=== PATIENT | female | born 1955 | race Caucasian/White ===

== ENCOUNTER 2017-01-16 17:06 | Inpatient (IN) ==
[2017-01-16] MEDS ORDERED: 0.9 % Sodium Chloride 1,000 ML IVC ONE (17:12)
--- NOTE | 2017-01-16 17:19 | Emergency Department Note ---
Disposition Clinical Impression: Alcoholic cirrhosis of liver, Hyperbilirubinemia, Pancreatic mass, Alcoholism / alcohol abuse, CVA (cerebral vascular accident), Debilitated patient Disposition: Admitted As Inpatient Condition: Serious Referrals: NO,PCP [Primary Care Provider] - Forms: ED Satisfaction Letter Weakness HPI - General Chief complaint: ED Weakness Stated complaint: Unable to Walk Source: patient, family, EMS Limitations: no limitations Nursing Notes Reviewed: Yes Vital Signs Reviewed: Yes - History of Present Illness HPI Narrative: 61-year-old female with a history of alcoholic cirrhosis, chronic pancreatitis and previous CVA presents to the emergency department with the chief complaint of generalized weakness. She has had multiple CVAs in the past but has refused to come to the hospital. She has been evaluated one time for her strokes at [facility]. She is an alcoholic and drinks three 1/2 gallons of vodka every week. Her boyfriend whom she lives with states she has become so weak especially on the left side she has not even been able to stand, this has been going on for about the last 3 weeks. Patient denies any abdominal pain, nausea or vomiting. Denies any diarrhea. Denies any headache. She does admit to some weakness worse in the left. Pain Scale: 0 - Related Data Allergies Allergy/AdvReac Type Severity Reaction Status Date / Time No Known Allergies Allergy Verified 01/16/17 17:07 All systems ED: reviewed and negative except as stated. Constitutional: Denies: fever Cardiovascular: Denies: chest pain Respiratory: Denies: cough Gastrointestinal: Denies: abdominal pain, nausea, vomiting, diarrhea Musculoskeletal: Denies: back pain, neck pain Neurological: Reports: weakness. Denies: headache Past Medical History - Past Medical History Medical history: Reports: coronary artery disease, CVA, hyperlipidemia, liver disease, TIA Psychiatric history: Reports: no psych history - Social History Smoking Status: Current every day smoker Smokeless Tobacco Status: No Alcohol use: Reports: heavy Drug use: Reports: none Physical Exam General: Patient is cachectic and appears very chronically ill, she is obviously jaundiced but awake and alert Cardiovascular: Regular rate and rhythm. S1, S2. No murmurs, rubs or gallops. Respiratory: Breath sounds clear bilaterally. No wheezing, rales or rhonchi. No resp distress Abdomen: Soft, nontender. No guarding, rebound or rigidity. Normal bowel sounds throughout. Negative Graham's. No palpable organomegaly Eyes: Scleral icterus, pupils equally round and reactive, EOMI HENT: Dry mucous membranes. Poor dentition. Neuro: No facial droop. Cranial nerves intact. Chronic contractures of the left upper extremity. Neither leg drifts to the bed for 10 seconds. 5/5 right upper extremity strength. Musculoskeletal: Diffuse muscle atrophy in the upper and lower extremities. No joint swelling or tenderness Skin: Jaundiced and dry. No diaphoresis. Psych: Appropriate - General Limitations: no limitations General appearance: alert, in no apparent distress Course Course Narrative: Presents to the emergency department with progressive weakness leading to her inability to even stand or take care of herself at home. She has refused to see a doctor or be worked up for her medical problems. Her boyfriend has been taking care of her completely for the last 3 weeks as she is not even able to stand. Known history of multiple strokes in the past but essentially no workup. She is an alcoholic and drinks about 1.5 gallons of vodka per week. She is cachectic, jaundiced and chronically ill-appearing. Her EKG shows no acute ischemic changes. Chest x-ray clear. Labs reveal hyperbilirubinemia and transaminitis likely relating to her chronic alcohol use. CT scan of her head shows multiple areas of previous infarctions with the majority in the right parietal temporal region.The CT scan of her abdomen shows chronic pancreatitis with a lesion in the tail of the pancreas that might need further imaging for better demonstration. She has a very enlarged liver with severe fatty infiltration. At this point patient's outcome is grim. She severely debilitated and may require full care at this point. She agrees to stay in the hospital. She will need alcoholic withdrawal protocol as she is a very heavy drinker. Dr. Ríos spoke with the on-call hospitalist, Dr. Lyn who accepts for admission, we added on a magnesium and phosphorus per his request. Vital Signs Temperature 98 F 01/16/17 17:08 Pulse Rate 84 01/16/17 17:08 Respiratory Rate 18 01/16/17 17:08 Blood Pressure 156/85 01/16/17 17:08 O2 Sat by Pulse Oximetry 100 01/16/17 17:08 Temperature 98 F 01/16/17 17:08 Pulse Rate 81 01/16/17 18:37 Respiratory Rate 17 01/16/17 18:37 Blood Pressure 164/85 01/16/17 18:37 O2 Sat by Pulse Oximetry 100 01/16/17 18:37 Oxygen Delivery Oxygen Delivery Room Air Weakness - Lab Data Result diagrams: 01/16/17 18:34 01/16/17 18:34 Lab Results 01/16/17 01/16/17 01/16/17 Range/Units 18:34 18:34 18:34 WBC 10.0 (4.3-11.1) K/mcL RBC 3.62 L (3.82-4.97) M/mcL Hgb 12.6 (11.5-15.4) g/dL Hct 35.1 L (35.3-44.9) % MCV 97.0 (83.0-100.0) fL MCH 34.8 H (28.0-33.3) pg MCHC 35.9 H (31.6-35.5) g/dL RDW 17.2 H (11.5-14.5) % Plt Count 262 (140-400) K/mcL MPV 10.9 (9.4-12.4) fL Immature Gran % 0.6 (0-4) % Seg Neutrophils % 79.1 % Lymphocytes % 14.1 % Monocytes % 5.7 % Eosinophils % 0.1 % Basophils % 0.4 % Neutrophils # 7.9 (1.6-8.9) K/mcL Lymphocytes # 1.4 (0.6-4.6) K/mcL Monocytes # 0.6 (0.0-1.3) K/mcL Eosinophils # 0.0 (0.0-0.6) K/mcL Basophils # 0.0 (0.0-0.2) K/mcL Immature Plt Fraction 6.9 H (1.1-6.1) % PT 17.0 H (9.4-12.1) Seconds INR 1.6 Sodium 131 L (136-145) mEq/L Potassium 3.2 L (3.5-4.5) mEq/L Chloride 100 (98-109) mEq/L Carbon Dioxide 21 (19-29) mEq/L BUN 5 L (7-20) mg/dL Creatinine 0.53 L (0.57-1.11) mg/dL Est GFR ( Amer) > 60 (> 60) Est GFR (Non-Af Amer) > 60 (> 60) BUN/Creatinine Ratio 9 (6-26) Glucose 130 H (70-99) mg/dL Calculated Osmolality 271 L (280-300) Calcium 7.8 L (8.6-10.8) mg/dL Total Bilirubin 10.6 H (0.2-1.2) mg/dL Direct Bilirubin 8.1 H (0.0-0.5) mg/dL Indirect Bilirubin 2.5 H (0.0-1.2) mg/dL AST 180 H (5-34) Units/L ALT 100 H (0-55) Units/L Alkaline Phosphatase 211 H (38-126) Units/L Troponin I (0-0.03) ng/mL Serum Total Protein 5.7 L (6.0-8.3) g/dL Albumin 2.0 L (3.5-5.0) g/dL Globulin 3.7 H (2.4-3.5) g/dL Albumin/Globulin Ratio 0.5 L (1.1-2.2) Lipase 20 (8-78) Units/L /25/17 Range/Units 18:34 WBC (4.3-11.1) K/mcL RBC (3.82-4.97) M/mcL Hgb (11.5-15.4) g/dL Hct (35.3-44.9) % MCV (83.0-100.0) fL MCH (28.0-33.3) pg MCHC (31.6-35.5) g/dL RDW (11.5-14.5) % Plt Count (140-400) K/mcL MPV (9.4-12.4) fL Immature Gran % (0-4) % Seg Neutrophils % % Lymphocytes % % Monocytes % % Eosinophils % % Basophils % % Neutrophils # (1.6-8.9) K/mcL Lymphocytes # (0.6-4.6) K/mcL Monocytes # (0.0-1.3) K/mcL Eosinophils # (0.0-0.6) K/mcL Basophils # (0.0-0.2) K/mcL Immature Plt Fraction (1.1-6.1) % PT (9.4-12.1) Seconds INR Sodium (136-145) mEq/L Potassium (3.5-4.5) mEq/L Chloride (98-109) mEq/L Carbon Dioxide (19-29) mEq/L BUN (7-20) mg/dL Creatinine (0.57-1.11) mg/dL Est GFR ( Amer) (> 60) Est GFR (Non-Af Amer) (> 60) BUN/Creatinine Ratio (6-26) Glucose (70-99) mg/dL Calculated Osmolality (280-300) Calcium (8.6-10.8) mg/dL Total Bilirubin (0.2-1.2) mg/dL Direct Bilirubin (0.0-0.5) mg/dL Indirect Bilirubin (0.0-1.2) mg/dL AST (5-34) Units/L ALT (0-55) Units/L Alkaline Phosphatase (38-126) Units/L Troponin I 0.01 (0-0.03) ng/mL Serum Total Protein (6.0-8.3) g/dL Albumin (3.5-5.0) g/dL Globulin (2.4-3.5) g/dL Albumin/Globulin Ratio (1.1-2.2) Lipase (8-78) Units/L - EKG Data EKG results narrative: EKG shows a sinus rhythm with a rate of [address] elevation or depression. T-wave flattening in V4 through V6. CA, QRS, QT interval within normal limits. Normal axis. Attestation Statement - Attestation Attestation: Patient was seen with resident physician. I reviewed the history, physical, assessment and plan, and agree with the findings. I also personally evaluated this patient and had [id number] time with this patient. 61-year-old female with a variety of medical problems presents emergency department with increased weakness for the last several weeks. She is unable to take care of herself at home. She says the weakness is largely on the left side which she has had multiple strokes in the past. It was not a particularly acute onset. Her caregiver says he can no longer care for her because he is unable to carry her around as is required because she is unable to walk. Patient's severe alcoholic , she has been noncompliant with her physicians in medical therapies, but at this point is amenable to admission to the hospital because she is really unable to care for herself. On examination patient is jaundiced. Neurologically she is intact strength seems symmetric in both the left and right upper extremities. Heart and lungs are unremarkable. Abdomen is soft cannot elicit tenderness. Extremities show no swelling. We will do a workup to check for liver pancreatic and neurologic issues. Once we have some more clinical data will anticipate needing to admit this patient to the hospital for further evaluation and treatment as well as physical therapy and occupational therapy to try and help her regain her strength. Lab testing was consistent with liver failure, head CT scan shows no acute changes, abdominal CT scan showed a variety of abnormalities including enlarged liver and calcifications are on the pancreas. Suggested follow-up of an MRI to look I agree with for additional abnormality's. Patient was hemodynamically okay but still unable to care for herself on the emergency department. I personally spoke with the hospitalist to arrange for admission for this patient. I agree with the resident physician assessment and plan.
[2017-01-16 18:43] LABS: Basophils % 0.4 %; Eosinophils % 0.1 %; Hematocrit 35.1 % (35.3-44.9); Hemoglobin 12.6 g/dL (11.5-15.4); Immature Granulocytes % 0.6 % (0-4); Immature Platelets 6.9 % (1.1-6.1); Lymphocytes # 1.4 K/mcL (0.6-4.6); Lymphocytes % 14.1 %; Mean Corpuscular HGB Conc 35.9 g/dL (31.6-35.5); Mean Corpuscular Hemoglobin 34.8 pg (28.0-33.3); Mean Platelet Volume 10.9 fL (9.4-12.4); Monocytes # 0.6 K/mcL (0.0-1.3); Monocytes % 5.7 %; Neutrophils # 7.9 K/mcL (1.6-8.9); Platelet Count 262 K/mcL (140-400); Red Blood Count 3.62 M/mcL (3.82-4.97); Red Cell Distribution Width 17.2 % (11.5-14.5); Segmented Neutrophils % 79.1 %
[2017-01-16 18:49] LABS: INR 1.6
[2017-01-16 18:57] LABS: Alanine Aminotransferase 100 Units/L (0-55); Albumin/Globulin Ratio 0.5 (1.1-2.2); Alkaline Phosphatase 211 Units/L (38-126); Aspartate Amino Transferase 180 Units/L (5-34); BUN/Creatinine Ratio 9 (6-26); Bilirubin,Direct 8.1 mg/dL (0.0-0.5); Bilirubin,Indirect 2.5 mg/dL (0.0-1.2); Bilirubin,Total 10.6 mg/dL (0.2-1.2); Calcium 7.8 mg/dL (8.6-10.8); Carbon Dioxide 21 mEq/L (19-29); Chloride 100 mEq/L (98-109); Globulin 3.7 g/dL (2.4-3.5); Glucose 130 mg/dL (70-99); Lipase 20 Units/L (8-78); Osmolality,Calculated 271 (280-300); Potassium 3.2 mEq/L (3.5-4.5); Sodium 131 mEq/L (136-145); Total Protein 5.7 g/dL (6.0-8.3); eGFR For African Americans > 60 (> 60); eGFR For Non-African Americans > 60 (> 60)
[2017-01-16 19:04] LABS: Blood Urea Nitrogen 5 mg/dL (7-20)
[2017-01-16 19:53] LABS: Phosphorous 2.3 mg/dL (2.3-4.7)
[2017-01-16] MEDS ORDERED: Magnesium Sulfate 2 GM in D5% in Water 100 ML IVPB ONE (20:15)
--- NOTE | 2017-01-17 00:03 | Internal Med History&Physical ---
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 Will consult physical therapy and outpatient therapy. (2) Alcoholic hepatitis Current visit: Yes Status: Acute Meganey discriminant function is 33 - which indicates high short term mortality and indication for glucocorticoid therapy - started on prednisolone 40 mg /day ( advised for 4 weeks with taper); MELD score is 21. Will consult GI for further advice. Qualifiers: Ascites presence: without ascites Qualified Code(s): K70.10 - Alcoholic hepatitis without ascites (3) Chronic alcoholic liver disease Current visit: Yes Status: Chronic Supportive measures (4) Hypokalemia Current visit: Yes Status: Acute Replenish potassium (5) Hypomagnesemia Current visit: Yes Status: Acute Replenish magnesium. cardiac monitoring. Monitor mag levels (6) Malnutrition Current visit: Yes Status: Acute Vitamin supplements - Thiamine, folate, vit K. Nutrition consult. (7) CVA, old, hemiparesis Current visit: Yes Status: Acute check lipid panel and carotid doppler. PT/OT/social service consult (8) Alcohol abuse Current visit: Yes Status: Acute CIWA protocol; Thiamin, folate and multivitamin supplements. Advised abstinence (9) Pancreatic mass Current visit: Yes Status: Acute cystic pancreatic lesion in the tail of pancreas: 2.4 x 1.3 cm. Radiologist recommends MRI of the abdomen. Will consult GI for further advice. (10) Hyponatremia Current visit: Yes Status: Acute Possibly due to chronic liver disease. Will monitor sodium levels (11) Hyperbilirubinemia Current visit: Yes Status: Acute Due to chronic liver disease. Monitor (12) Nicotine dependence Current visit: Yes Status: Acute Pt does not want nicotine patches at this time Qualifiers: Nicotine product type: cigarettes Substance use status: unspecified nicotine-induced disorder Qualified Code(s): F17.219 - Nicotine dependence, cigarettes, with unspecified nicotine-induced disorders (13) DVT prophylaxis Current visit: Yes Status: Acute SCDs Internal Medicine - H&P: HPI Chief complaint: unable to walk Admitted From: Emergency Dept Plans for Post Hospital Care: Transfer [facility] Facility History of present illness: Ms. Brenner is a 61 year old female with a history of ETOH abuse, Chronic liver disease, chronic pancreatitis and previous multiple CVAs (with left sided weakness) she apparently did not want to be evaluated, on multiple occasions. She apparently had a fall about 2 months ago, but did not want to be evaluated in the hospital. She reports left foot pain following that episode, but was able to ambulate (usually a little unsteady in her gait but does not use any walking aids). For the last 3 weeks, she has been weak and was not able to ambulate completely. Her boyfriend was transferring her from bed to chair. He wanted her to be evaluated and brought her to the ER. She denies chest pain, shortness of breath, cough, expectation, fever, chills, abdominal pain, nausea, vomiting, dysuria, hematuria, melena, hematochezia. She has history of heavy alcohol use, stopped for a few years and restarted 2 years ago. She now drinks half gallon of vodka / week. She admits to smoking about a pack of cigarettes/day. She was evaluated in the emergency department and was given IV normal saline. CT head, abdomen and chest x-ray were done. She is admitted to hospitalist service for further workup and management. Past Med Surg Social Fam HX - Past Medical History Medical history: coronary artery disease, CVA, hyperlipidemia, liver disease, TIA Psychiatric history: no psych history - Social History Smoking Status: Current every day smoker Smokeless Tobacco Status: No Alcohol use: heavy Drug use: none - Family History Father Hx Family Endocrine Disorder: Yes (DM) Hx Family Musculoskeletal Disorders: Yes (Parkinsons) Internal Medicine - H&P: Meds Allergies No Known Allergies Allergy (Verified 01/16/17 17:07) All Systems PM: A 10-system review of systems was performed and is negative for pertinent findings except as documented above in the HPI. - Constitutional Vitals: Temp Pulse Resp BP Pulse Ox 98.3 F 81 16 146/76 98 01/16/17 23:28 01/16/17 23:28 01/16/17 23:28 01/16/17 23:28 01/16/17 23:28 Exam: General: Not in acute distress at the time of my evaluation. She is very thin and avoids eye contact, when speaking to her HEENT: Oral mucosa is dry. No conjunctival palor. Scleral icterus present Neck: No obvious neck swellings Lungs: Clear to auscultation. Diminished breath sounds Cardiac: Regular rate and rhythm. systolic murmur present in the aortic area Abdomen: Hepatomegaly upto the right iliac fossa with tenderness. Bowel sounds present Genitourinary: No mohamud catheter Neurological: Alert and oriented. Weakness of the left upper extremity 4/5. No cerebellar signs in the upper extremities. On standing up, she is not able to keep her feet together. When I was trying to walk her, she said that she is very tired and could not participate. Psych: Not aggressive or agitated Extremities: no significant leg edema Skin: No generalized rash Internal Med - H&P Results - Labs CBC & Chem 7: 01/16/17 18:34 01/16/17 18:34 Labs: Abnormal Lab Results 01/16/17 01/16/17 01/16/17 18:34 18:34 18:34 WBC 10.0 RBC 3.62 L Hgb 12.6 Hct 35.1 L MCV 97.0 MCH 34.8 H MCHC 35.9 H RDW 17.2 H Plt Count 262 MPV 10.9 Immature Gran % 0.6 Seg Neutrophils % 79.1 Lymphocytes % 14.1 Monocytes % 5.7 Eosinophils % 0.1 Basophils % 0.4 Neutrophils # 7.9 Lymphocytes # 1.4 Monocytes # 0.6 Eosinophils # 0.0 Basophils # 0.0 Immature Plt Fraction 6.9 H PT 17.0 H INR 1.6 Sodium 131 L Potassium 3.2 L Chloride 100 Carbon Dioxide 21 BUN 5 L Creatinine 0.53 L Est GFR ( Amer) > 60 Est GFR (Non-Af Amer) > 60 BUN/Creatinine Ratio 9 Glucose 130 H Calculated Osmolality 271 L Calcium 7.8 L Phosphorus 2.3 Magnesium 1.0 L Total Bilirubin 10.6 H Direct Bilirubin 8.1 H Indirect Bilirubin 2.5 H AST 180 H ALT 100 H Alkaline Phosphatase 211 H Troponin I Serum Total Protein 5.7 L Albumin 2.0 L Globulin 3.7 H Albumin/Globulin Ratio 0.5 L Lipase 20 01/16/17 18:34 WBC RBC Hgb Hct MCV MCH MCHC RDW Plt Count MPV Immature Gran % Seg Neutrophils % Lymphocytes % Monocytes % Eosinophils % Basophils % Neutrophils # Lymphocytes # Monocytes # Eosinophils # Basophils # Immature Plt Fraction PT INR Sodium Potassium Chloride Carbon Dioxide BUN Creatinine Est GFR ( Amer) Est GFR (Non-Af Amer) BUN/Creatinine Ratio Glucose Calculated Osmolality Calcium Phosphorus Magnesium Total Bilirubin Direct Bilirubin Indirect Bilirubin AST ALT Alkaline Phosphatase Troponin I 0.01 Serum Total Protein Albumin Globulin Albumin/Globulin Ratio Lipase - EKG Data -: EKG Interpreted by Myself EKG shows normal: sinus rhythm - Impressions ITS Impressions Chest X-Ray 01/16/17 17:13 IMPRESSION: No pneumonia or edema D/ / Surjit Zapata MD / Surjit Zapata MD Interpreting Provider: Surjit Zapata MD Head CT 01/16/17 17:15 IMPRESSION: 1. No acute intracranial abnormality. 2. Multifocal chronic infarctions most prominently involving the right parietotemporal lobes. D/ / Jack Stoll MD / Jack Stoll MD Interpreting Provider: Jack Stoll MD Abdomen/Pelvis CT 01/16/17 17:16 IMPRESSION: 1. Evidence of chronic pancreatitis with dense calcification throughout the pancreas. 2. Cystic lesion in the tail of the pancreas measuring 2.4 x 1.3 cm. MR imaging is suggested for further evaluation if not previously performed. 3. Severe fatty infiltration of the liver. Enlargement of the right hepatic lobe. 4. Atherosclerosis including coronary arterial calcification. D/ / 01/16/2017 18:33:24 Etienne Chua MD / [place] Interpreting Provider: Etienne Chua MD
[2017-01-17] MEDS ORDERED: Naloxone 0.4 MG/ML INJ IVP PRN (01:56)
[2017-01-17] MEDS ORDERED: *HR* LORazepam 2 MG/ML VIAL IVP PRN ×3 (02:00)
[2017-01-17] MEDS: 0.9 % Sodium Chloride 1,000 ML IVC SCH ×2 (02:51→21:00)
[2017-01-17] MEDS: traMADol 50 MG TABLET PO PRN ×2 (03:46→20:59)
[2017-01-17 04:34] LABS: Basophils # 0.1 K/mcL (0.0-0.2); Basophils % 0.6 %; Eosinophils # 0.1 K/mcL (0.0-0.6); Eosinophils % 0.6 %; Hemoglobin 11.2 g/dL (11.5-15.4); Immature Granulocytes % 0.5 % (0-4); Immature Platelets 6.2 % (1.1-6.1); Lymphocytes # 2.1 K/mcL (0.6-4.6); Lymphocytes % 22.5 %; Mean Corpuscular Hemoglobin 34.9 pg (28.0-33.3); Mean Corpuscular Volume 99.7 fL (83.0-100.0); Mean Platelet Volume 11.2 fL (9.4-12.4); Monocytes # 0.7 K/mcL (0.0-1.3); Monocytes % 7.9 %; Neutrophils # 6.4 K/mcL (1.6-8.9); Platelet Count 239 K/mcL (140-400); Red Blood Count 3.21 M/mcL (3.82-4.97); Red Cell Distribution Width 17.5 % (11.5-14.5); Segmented Neutrophils % 67.9 %
[2017-01-17] MEDS: Melatonin 3 MG TABLET PO PRN ×2 (04:43→20:59)
[2017-01-17 04:46] LABS: Alanine Aminotransferase 90 Units/L (0-55); Albumin/Globulin Ratio 0.5 (1.1-2.2); Alkaline Phosphatase 195 Units/L (38-126); Aspartate Amino Transferase 163 Units/L (5-34); BUN/Creatinine Ratio 11 (6-26); Blood Urea Nitrogen 6 mg/dL (7-20); Calcium 7.4 mg/dL (8.6-10.8); Carbon Dioxide 18 mEq/L (19-29); Chloride 104 mEq/L (98-109); Cholesterol 158 mg/dL (< 200); Globulin 3.3 g/dL (2.4-3.5); Glucose 156 mg/dL (70-99); LDL Cholesterol,Calculated 110 mg/dL (0-99); Magnesium 1.3 mg/dL (1.6-2.6); Osmolality,Calculated 273 (280-300); Potassium 3.8 mEq/L (3.5-4.5); Sodium 131 mEq/L (136-145); Total Protein 5.1 g/dL (6.0-8.3); Triglycerides 213 mg/dL (< 150); eGFR For African Americans > 60 (> 60); eGFR For Non-African Americans > 60 (> 60)
[2017-01-17 04:52] LABS: Albumin 1.8 g/dL (3.5-5.0); Bilirubin,Total 9.8 mg/dL (0.2-1.2); HDL Cholesterol < 5 mg/dL (40-59)
[2017-01-17] MEDS: Thiamine (B-1) 100 MG TABLET PO SCH (07:51)
[2017-01-17] MEDS: Vitamin B Complex/Vit C/Vit E 1 EACH TABLET PO SCH (07:51)
[2017-01-17] MEDS: Folic Acid 1 MG TABLET PO SCH (07:51)
[2017-01-17] MEDS: *HR* Phytonadione 5 MG TABLET PO SCH (07:51)
[2017-01-17] MEDS: PrednisoLONE Oral Soln 15 MG/5 ML UDC PO SCH (07:51)
[2017-01-17] MEDS: Magnesium Oxide 400 MG TABLET PO SCH ×2 (10:28→21:00)
--- NOTE | 2017-01-17 13:37 | Internal Med Progress Note ---
Date of Encounter: 01/17/17 Time of Encounter: 12:15 - Assessment and plan (1) Alcoholic cirrhosis of liver Current Visit: Yes Status: Chronic Qualifiers: Ascites presence: without ascites Qualified Code(s): K70.30 - Alcoholic cirrhosis of liver without ascites (2) Alcoholic hepatitis Current Visit: Yes Status: Acute Assessment and plan: Tevindea discriminant function is 33 Continue prednisolone 40 mg /day (advised for 4 weeks with taper); MELD score is 21. 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 Foot Xray abnormal Fall precautions PT/OT eval (5) Hypokalemia Current Visit: Yes Status: Acute Assessment and plan: Improved with replacement (6) Hypomagnesemia Current Visit: Yes Status: Acute Assessment and plan: Improved with replacement Give RTC po replacement (7) Pancreatic mass Current Visit: Yes Status: Acute Assessment and plan: Patient reports not having known about this before Will await GI recommendation regarding Abdomen MRI - Subjective Interval history: Initial encounter 61 Y/O F with PMH of Heavy Alcohol abuse, with alcoholic liver disease, Hepatic steatosis, Chronic pancreaitis, HLD, CAD, Tobacco abuse She is admitted to observation for evaluation for generalised weakness and deconditioning with recurrent falls Patient is seen at bedside with family She is evasive, answers questions with monosyllables and avoiding eye contact She however denies history of alcohol withdrawal in the past Her only complain is "Theres not enough salt in any food here" Work up significant for normal CBC, Hypokalemia, Hypomagnessemia, Hepatitis, Hyperbilirubinemia, Imaging with Severe fatty liver, cirrhosis, chronic pancreatitis with pancreatic cyst, Head CT no acute infarct, CXR is unremarkable - Constitutional Vitals: Temp Pulse Resp BP Pulse Ox 98.0 F 77 14 164/82 96 01/17/17 11:44 01/17/17 11:44 01/17/17 11:44 01/17/17 11:44 01/17/17 11:44 Exam: Gen: NAD, Cachectic HEENT: Oral mucosa is dry. No conjunctival palor. Scleral icterus present Neck: No obvious neck swellings Lungs: Clear to auscultation. Diminished breath sounds bilaterally (possibly from emphysema) Heart: S1, S2, RRR no g/m/r Abdomen: Hepatomegaly ++, not tender, normal bowel sounds Genitourinary: No mohamud catheter Neurological: AAOX3, no speech deficits, moves all limbs equally. Gait not assessed Extremities: no significant leg edema Skin: Dry, no excoriation Internal Medicine: Result - Labs CBC & Chem 7: 01/17/17 04:31 01/17/17 03:11 Labs: Short CBC 01/17/17 Range/Units 04:31 WBC 9.4 (4.3-11.1) K/mcL Hgb 11.2 L (11.5-15.4) g/dL Hct 32.0 L (35.3-44.9) % Plt Count 239 (140-400) K/mcL Neutrophils # 6.4 (1.6-8.9) K/mcL BMP 01/17/17 03:11 Sodium 131 L Potassium 3.8 Chloride 104 Carbon Dioxide 18 L BUN 6 L Creatinine 0.54 L Glucose 156 H Calcium 7.4 L Liver Function 01/17/17 Range/Units 03:11 Total Bilirubin 9.8 H (0.2-1.2) mg/dL AST 163 H (5-34) Units/L ALT 90 H (0-55) Units/L Alkaline Phosphatase 195 H (38-126) Units/L Albumin 1.8 L (3.5-5.0) g/dL - ABG Interpretation ABG results: PT/INR, D-dimer PT 17.0 Seconds (9.4-12.1) H 01/16/17 18:34 - Impressions Impressions Foot X-Ray 01/17/17 02:30 IMPRESSION: No acute osseous abnormality. D/ / Denton Flores MD / Denton Floers MD Interpreting Provider: Denton Flores MD Consult Discharge Plan - Plan Referrals: Kell Faye DO [Primary Care Provider] -
[2017-01-17 17:31] LABS: Bilirubin,Urine Large (Negative); Blood,Urine Negative (Negative); Clarity,Urine Cloudy (Clear); Color,Urine Orange (Yellow); Glucose,Urine (UA) >=1000 mg/dL (Normal); Ketones,Urine Trace mg/dL (Negative); Leukocyte Esterase,Urine Small (Negative); Nitrite,Urine Negative (Negative); Protein,Urine Trace mg/dL (Neg-Trace); Specific Gravity,Urine 1.026 (1.010-1.025)
[2017-01-17 17:33] LABS: RBC,Urine 0-3 per hpf (0-3); Squamous Epithelial Cell,Urine Many per lpf (None-Few); WBC,Urine 0-3 per hpf (0-3)
[2017-01-17 18:05] LABS: Bacteria,Urine Many per hpf (None-Few)
[2017-01-17 18:06] LABS: Amorphous Sediment,Urine Few (Few)
[2017-01-17] MEDS ORDERED: D5% in Water 1,000 ML IV PRN (18:56)
[2017-01-17] MEDS ORDERED: Dextrose Gel 15 GM PO PRN ×2 (18:56)
[2017-01-17] MEDS ORDERED: *HR* Dextrose 50 % in Water (Syg) 50 ML SYRINGE IVP PRN (18:56)
[2017-01-17] MEDS: Insulin LISPRO 300 UNITS/3 ML VIAL SQ SCH (21:01)
[2017-01-18 05:28] LABS: Basophils % 0.5 %; Eosinophils # 0.1 K/mcL (0.0-0.6); Eosinophils % 1.1 %; Hematocrit 29.6 % (35.3-44.9); Hemoglobin 10.2 g/dL (11.5-15.4); Immature Granulocytes % 0.4 % (0-4); Lymphocytes # 2.6 K/mcL (0.6-4.6); Lymphocytes % 30.9 %; Mean Corpuscular HGB Conc 34.5 g/dL (31.6-35.5); Mean Corpuscular Hemoglobin 34.3 pg (28.0-33.3); Mean Corpuscular Volume 99.7 fL (83.0-100.0); Mean Platelet Volume 11.7 fL (9.4-12.4); Monocytes # 0.6 K/mcL (0.0-1.3); Monocytes % 6.5 %; Neutrophils # 5.2 K/mcL (1.6-8.9); Platelet Count 237 K/mcL (140-400); Red Blood Count 2.97 M/mcL (3.82-4.97); Red Cell Distribution Width 17.8 % (11.5-14.5); Segmented Neutrophils % 60.6 %
[2017-01-18 05:46] LABS: Alanine Aminotransferase 79 Units/L (0-55); Albumin 1.6 g/dL (3.5-5.0); Albumin/Globulin Ratio 0.5 (1.1-2.2); Alkaline Phosphatase 165 Units/L (38-126); Aspartate Amino Transferase 129 Units/L (5-34); BUN/Creatinine Ratio 14 (6-26); Bilirubin,Total 7.6 mg/dL (0.2-1.2); Blood Urea Nitrogen 7 mg/dL (7-20); Calcium 7.7 mg/dL (8.6-10.8); Carbon Dioxide 17 mEq/L (19-29); Chloride 109 mEq/L (98-109); Globulin 3.1 g/dL (2.4-3.5); Glucose 135 mg/dL (70-99); Magnesium 1.1 mg/dL (1.6-2.6); Osmolality,Calculated 274 (280-300); Potassium 4.3 mEq/L (3.5-4.5); Sodium 132 mEq/L (136-145); Total Protein 4.7 g/dL (6.0-8.3); eGFR For African Americans > 60 (> 60); eGFR For Non-African Americans > 60 (> 60)
[2017-01-18] MEDS: PrednisoLONE Oral Soln 15 MG/5 ML UDC PO SCH (07:56)
[2017-01-18] MEDS: Vitamin B Complex/Vit C/Vit E 1 EACH TABLET PO SCH (07:56)
[2017-01-18] MEDS: Thiamine (B-1) 100 MG TABLET PO SCH (07:56)
[2017-01-18] MEDS: Folic Acid 1 MG TABLET PO SCH (07:56)
[2017-01-18] MEDS: *HR* Phytonadione 5 MG TABLET PO SCH (07:56)
[2017-01-18] MEDS: Magnesium Oxide 400 MG TABLET PO SCH ×2 (07:56→20:26)
[2017-01-18] MEDS: Insulin LISPRO 300 UNITS/3 ML VIAL SQ SCH ×4 (07:59→20:27)
[2017-01-18] MEDS ORDERED: Magnesium Sulfate 2 GM in D5% in Water 100 ML IVPB ONE ×2 (11:07→12:00)
--- NOTE | 2017-01-18 12:01 | Gastroenterology Consult Note ---
<Ruslan Suarez - Last Filed: 01/18/17 12:16> Date of Encounter: 01/18/17 Time of Encounter: 11:05 - Assessment and plan (1) Alcoholic hepatitis Current Visit: Yes Status: Acute Assessment and plan: On admission MELD Na 25, Child-P[place]ra Class B-C, DF 40.5. Continue steroids. Pt drinking 0.5 to 1 gallon of Vodka per week. Stop all forms of alcohol use. On admission TB 10.6, DB 8.1, AST 180, ALT 100 alk phos 211. Labs improved today, TB 7.6, AST 129, ALT 79, alk phos 165. Complete liver workup with AFP, ROHAN, alpha one antitrypsin, ceruloplasmin, F-Actin, ferritin, hepatitis profile, ANCA , AMA, PT/INR. Total abstinence from alcohol including social drinking. Qualifiers: Ascites presence: without ascites Qualified Code(s): K70.10 - Alcoholic hepatitis without ascites (2) Fatty liver Current Visit: Yes Status: Acute Assessment and plan: Noted on CT A/P. Complete liver workup. (3) Alcohol abuse Current Visit: Yes Status: Acute (4) Pancreatic mass Current Visit: Yes Status: Acute Assessment and plan: Pt with history of chronic pancreatitis, could be a pseudocyst. Agree with MRI abdomen. We will continue to monitor. - Time Spent With Patient Total time spent is greater than 50% in coordination of care (as documented) at patient's floor/unit and/or counseling patient: GI History of Present Illness - Data of Consult Patient: new to practice Consult date: 01/18/17 Requesting Physician: Ty Bush MD - Consult Narrative Reason for consult: Alcoholic hepatitis, Pancreatic cystic lesion History of present illness: Ms. Brenner is a 61 year old female with PMHx of of CAD, CVA, HLD, TIA, ETOH abuse, chronic liver disease, chronic pancreatitis. She had a fall 2 months ago , but refused to be evaluated in the hospital. For the past 3 weeks, she has been weak and unable to ambulate. She denies chest pain, SOB, cought, fever, chills, abdominal pain, nausea, vomiting, melena, or hematochezia. She has a history of heavy alcohol use, drinking half to one gallon of vodka per week. CT A/P shows chronic pancreatitis with dense calcifications throughout the pancreas. Cystic lesion noted in tail of pancreas measuring 2.1x1.3 cm. Severe fatty liver also noted. Procedures: None NSAIDs: None Anticoagulation: None Past Med Surg Social Fam HX - Past Medical History Medical history: coronary artery disease, CVA, hyperlipidemia, liver disease, TIA Psychiatric history: no psych history - Social History Smoking Status: Current every day smoker Smokeless Tobacco Status: No Alcohol use: heavy Drug use: none - Family History Father Hx Family Endocrine Disorder: Yes (DM) Hx Family Musculoskeletal Disorders: Yes (Parkinsons) - Gastrointestinal Gastrointestinal: Present: as per HPI - Constitutional Constitutional: as per HPI - EENT Eyes: as per HPI Ears: Present: as per HPI Nose, mouth and throat: Present: as per HPI - Cardiovascular Cardiovascular ROS: Present: as per HPI - Respiratory Respiratory IM: Present: as per HPI - Genitourinary Genitourinary: Absent: change in color, Urinary frequency - Neurological ROS Neurological GI: Present: as per HPI - Hematologic/Lymphatic Hematologic/Lymphatic pediatric: Present: as per HPI - Musculoskeletal Musculoskeletal ROS GI: Present: as per HPI - Integumentary Integumentary GI: Present: as per HPI - Psychiatric ROS Psychiatric GI: Present: as per HPI - Endocrine Endocrine IM: Present: as per HPI - Constitutional Vitals: Temp Pulse Resp BP Pulse Ox 97.9 F 85 16 160/79 93 L 01/18/17 11:23 01/18/17 11:23 01/18/17 11:23 01/18/17 11:23 01/18/17 11:23 General appearance: Present: cooperative, A&O X 3, no acute distress, answers questions appropriately - Head Head exam: Present: atraumatic, normocephalic - Eye Eye exam: Present: scleral icterus - ENT ENT exam: Present: mucous membranes dry - Neck Neck exam general surgery: Present: normal inspection, trachea midline - Respiratory Respiratory exam: Present: decreased breath sounds, CTAB - Cardiovascular Cardiovascular exam: Present: RRR, +S1, +S2 - GI/Abdominal GI/Abdominal exam: Present: hepatomegaly, soft, no peritoneal signs. Absent: distended, firm, guarding, tenderness - Rectal Rectal exam: Present: deferred - Extremities Exam Extremities exam: Present: warm - Neurological Exam Neurological exam: Present: no focal deficits - Psychiatric Psychiatric exam: Present: normal affect, normal mood - Skin Skin exam: Present: dry, intact, warm. Absent: normal color (Jaundiced) Results - Labs CBC & Chem 7: 01/18/17 04:11 01/18/17 04:11 Labs: Last Result Calcium 7.7 mg/dL (8.6-10.8) L 01/18/17 04:11 Troponin I 0.01 ng/mL (0-0.03) 01/16/17 18:34 Triglycerides 213 mg/dL (< 150) H 01/17/17 03:11 Entire Visit Hgb 10.2 g/dL (11.5-15.4) L 01/18/17 04:11 Hct 29.6 % (35.3-44.9) L 01/18/17 04:11 PT 17.0 Seconds (9.4-12.1) H 01/16/17 18:34 Total Bilirubin 7.6 mg/dL (0.2-1.2) H 01/18/17 04:11 AST 129 Units/L (5-34) H 01/18/17 04:11 ALT 79 Units/L (0-55) H 01/18/17 04:11 Lipase 20 Units/L (8-78) 01/16/17 18:34 - ABG ABG results: PT/INR, D-dimer PT 17.0 Seconds (9.4-12.1) H 01/16/17 18:34 Consult Discharge Plan - Plan Referrals: Kell Faye DO [Primary Care Provider] - <Yariel Del Rio - Last Filed: 01/18/17 12:56> Date of Encounter: 01/18/17 Time of Encounter: 12:30 - Time Spent With Patient Total time spent is greater than 50% in coordination of care (as documented) at patient's floor/unit and/or counseling patient: GI History of Present Illness - Data of Consult Requesting Physician: Ty Bush MD - Consult Narrative History of present illness: Ms. Brenner is a 61 year old female - Constitutional Vitals: Temp Pulse Resp BP Pulse Ox 97.9 F 85 16 160/79 93 L 01/18/17 11:23 01/18/17 11:23 01/18/17 11:23 01/18/17 11:23 01/18/17 11:23 Results - Labs CBC & Chem 7: 01/18/17 04:11 01/18/17 04:11 Labs: Last Result Calcium 7.7 mg/dL (8.6-10.8) L 01/18/17 04:11 Troponin I 0.01 ng/mL (0-0.03) 01/16/17 18:34 Triglycerides 213 mg/dL (< 150) H 01/17/17 03:11 Entire Visit Hgb 10.2 g/dL (11.5-15.4) L 01/18/17 04:11 Hct 29.6 % (35.3-44.9) L 01/18/17 04:11 PT 17.0 Seconds (9.4-12.1) H 01/16/17 18:34 Total Bilirubin 7.6 mg/dL (0.2-1.2) H 01/18/17 04:11 AST 129 Units/L (5-34) H 01/18/17 04:11 ALT 79 Units/L (0-55) H 01/18/17 04:11 Lipase 20 Units/L (8-78) 01/16/17 18:34 - ABG ABG results: PT/INR, D-dimer PT 17.0 Seconds (9.4-12.1) H 01/16/17 18:34 - Attending Attestation I examined this patient and my medical decision-making was reviewed with the MANAGER FORENSIC/PA/Advanced Practice Nurse/Resident Physician. I agree with the documented findings, disposition and treatment plan as described except to the extent set forth below. Sure colic liver disease with a very elevated total bilirubin and discriminant function of more than 32. Current doses prior and LFTs are improving. Recommend that patient be discharged home on Medrol 32 mg with a 4 week taper.
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
[2017-01-18 13:40] LABS: INR 1.4; Prothrombin Time 14.9 Seconds (9.4-12.1)
[2017-01-18 14:12] LABS: Hepatitis A Antibody IgM Nonreactive (Nonreactive); Hepatitis B Core IgM Nonreactive (Nonreactive); Hepatitis B Surface Antigen Nonreactive (Nonreactive); Hepatitis C Virus Antibody Nonreactive (Nonreactive)
--- NOTE | 2017-01-18 14:50 | Electrocardiograph Report ---
[place] [id number] Test Date: 2017-01-16 Pat Name: Park Brenner Department: 103 Room: 3B23 Gender: F Box Stapler: : 1955 Requested By: Rory Bah Order Number: [id number] Reading MD: Joaquim Dang Measurements Intervals [place] Rate: 85 P: 66 FL: 141 QRS: 75 QRSD: 101 T: 7 QT: 345 QTc: 387 Interpretive Statements SINUS RHYTHM POSSIBLE LEFT ATRIAL ENLARGEMENT INFEROLATERAL T WAVE CHANGES Electronically Signed On 01-18-2017 14:48:53 EST by Joaquim Dang
--- NOTE | 2017-01-18 16:30 | Carotid Imaging Report ---
Carotid Duplex Patient Name:Park Brenner Order Number:[id number] Procedure Date:01/18/2017 Date:1955ge:61 yrs Gender:Female Location:[facility] Room #: 3B23 Director Of Federal Sales:Nieves Hunter, RVT, RDCS Referring MD:Michael Lyn MD page makeup system operator:None Reading MD:Gold Kerns MD , FACS Primary Indications:CVA Risk Factors Yes/No Hypertension Yes Hx of CVA Yes Smoking Current Yes Impressions: Findings: Bilateral carotid system have nonstenotic plaque. Findings Carotid Duplex: Right: The right proximal common carotid artery has a PSV of 76 cm/s and a EDV of 21 cm/s. The right mid common carotid artery has a PSV of 68 cm/s and a EDV of 20 cm/s. The right distal common carotid artery has a PSV of 67 cm/s and a EDV of 26 cm/s. There is nonstenotic plaque in the right bifurcation with a PSV of 64 cm/s and a EDV of 23 cm/s. There is irregular heterogeneous plaque. There is nonstenotic plaque in the right proximal internal carotid artery with a PSV of 105 cm/s and a EDV of 36 cm/s. There is irregular heterogeneous plaque. The right mid internal carotid artery has a PSV of 83 cm/s and a EDV of 24 cm/s. The right distal internal carotid artery has a PSV of 79 cm/s and a EDV of 28 cm/s. The right eca has turbulent flow with plaque with a PSV of 334 cm/s and a EDV of 51 cm/s. The right vertebral artery has a PSV of 52 cm/s and a EDV of 18 cm/s. Left: The left proximal common carotid artery has a PSV of 103 cm/s and a EDV of 31 cm/s. There is nonstenotic plaque in the left mid common carotid artery with a PSV of 93 cm/s and a EDV of 30 cm/s. There is irregular, heterogeneous calcified plaque. The left distal common carotid artery has a PSV of 100 cm/s and a EDV of 33 cm/s. There is nonstenotic plaque in the left bifurcation with a PSV of 103 cm/s and a EDV of 38 cm/s. There is irregular, heterogeneous calcified plaque. The left proximal internal carotid artery has a PSV of 88 cm/s and a EDV of 29 cm/s. The left mid internal carotid artery has a PSV of 96 cm/s and a EDV of 36 cm/s. The left distal internal carotid artery has a PSV of 126 cm/s and a EDV of 50 cm/s. There is nonstenotic plaque in the left eca with a PSV of 216 cm/s and a EDV of 49 cm/s. The left vertebral artery has a PSV of 75 cm/s and a EDV of 16 cm/s. Prior Study: No prior study available for comparison. Carotid Results Right PSV EDV Assessment Proximal CCA 76 21 Normal Mid CCA 68 20 Normal Distal CCA 67 26 Normal Bifurcation 64 23 Non Stenotic Plaque Proximal ICA 105 36 Non Stenotic Plaque Mid ICA 83 24 Normal Distal ICA 79 28 Normal ECA 334 51 Non Stenotic Plaque Vertebral Artery 52 18 Normal Left PSV EDV Assessment Proximal CCA 103 31 Normal Mid CCA 93 30 Non Stenotic Plaque Distal CCA 100 33 Normal Bifurcation 103 38 Non Stenotic Plaque Proximal ICA 88 29 Normal Mid ICA 96 36 Normal Distal ICA 126 50 Normal ECA 216 49 Normal Vertebral Artery 75 16 Normal Ratio's Right ICA/CCA Ratio: 1.54 ICA/CCA Values: 105/68 Left ICA/CCA Ratio: 1.03 ICA/CCA Values: 96/93 Updated by Gold Kerns MD, FACS on 01/18/2017 4:23:49 PM Gold Kerns MD electronically signed on 01/18/2017 4:24:14 PM with status of Final
[2017-01-18] MEDS: traMADol 50 MG TABLET PO PRN (20:25)
[2017-01-19 04:50] LABS: Basophils % 0.4 %; Eosinophils # 0.1 K/mcL (0.0-0.6); Eosinophils % 0.9 %; Hematocrit 31.1 % (35.3-44.9); Hemoglobin 10.7 g/dL (11.5-15.4); Immature Granulocytes % 0.5 % (0-4); Lymphocytes # 2.5 K/mcL (0.6-4.6); Lymphocytes % 25.9 %; Mean Corpuscular HGB Conc 34.4 g/dL (31.6-35.5); Mean Corpuscular Hemoglobin 34.7 pg (28.0-33.3); Mean Platelet Volume 11.1 fL (9.4-12.4); Monocytes # 0.6 K/mcL (0.0-1.3); Monocytes % 6.2 %; Neutrophils # 6.3 K/mcL (1.6-8.9); Platelet Count 255 K/mcL (140-400); Red Blood Count 3.08 M/mcL (3.82-4.97); Red Cell Distribution Width 17.9 % (11.5-14.5); Segmented Neutrophils % 66.1 %
[2017-01-19 05:14] LABS: Alanine Aminotransferase 89 Units/L (0-55); Albumin/Globulin Ratio 0.5 (1.1-2.2); Alkaline Phosphatase 171 Units/L (38-126); Aspartate Amino Transferase 135 Units/L (5-34); BUN/Creatinine Ratio 15 (6-26); Bilirubin,Total 7.5 mg/dL (0.2-1.2); Blood Urea Nitrogen 7 mg/dL (7-20); Calcium 7.6 mg/dL (8.6-10.8); Carbon Dioxide 18 mEq/L (19-29); Chloride 106 mEq/L (98-109); Globulin 3.2 g/dL (2.4-3.5); Glucose 158 mg/dL (70-99); Osmolality,Calculated 275 (280-300); Potassium 4.1 mEq/L (3.5-4.5); Sodium 132 mEq/L (136-145); Total Protein 4.9 g/dL (6.0-8.3); eGFR For African Americans > 60 (> 60); eGFR For Non-African Americans > 60 (> 60)
[2017-01-19 05:15] LABS: Albumin 1.7 g/dL (3.5-5.0)
[2017-01-19] MEDS: *HR* Phytonadione 5 MG TABLET PO SCH (09:54)
[2017-01-19] MEDS: Vitamin B Complex/Vit C/Vit E 1 EACH TABLET PO SCH (09:54)
[2017-01-19] MEDS: Thiamine (B-1) 100 MG TABLET PO SCH (09:54)
[2017-01-19] MEDS: Magnesium Oxide 400 MG TABLET PO SCH ×2 (09:54→20:44)
[2017-01-19] MEDS: Insulin LISPRO 300 UNITS/3 ML VIAL SQ SCH ×4 (09:55→20:43)
[2017-01-19] MEDS: Folic Acid 1 MG TABLET PO SCH (09:55)
--- NOTE | 2017-01-19 11:06 | Internal Med Progress Note ---
<Mateo Rios - Last Filed: 01/19/17 14:02> Date of Encounter: 01/19/17 Time of Encounter: 10:36 - Assessment and plan (1) Alcoholic cirrhosis of liver Current Visit: Yes Status: Chronic Assessment and plan: Hepatic workup pending Qualifiers: Ascites presence: without ascites Qualified Code(s): K70.30 - Alcoholic cirrhosis of liver without ascites (2) Alcoholic hepatitis Current Visit: Yes Status: Acute Assessment and plan: Appreciate gastroenterology input Continue methylprednisolone 32 mg daily and decrease by 8 mg every week for 4 weeks 01/18/17 [place] discriminant function is 33 Change prednisone to medrol per GI recs MELD score is 21. Transainitis and Hyperbilirubinemia is improving Encourage liberal fluid intake Hold IVF GI evaluation appreciated Qualifiers: Ascites presence: without ascites Qualified Code(s): K70.10 - Alcoholic hepatitis without ascites (3) Alcoholism /alcohol abuse Current Visit: Yes Status: Acute Assessment and plan: 01/18/17 Patient ingests half to 1 gallon of Vodka weekly She reports never having had a withdrawal event Monitor closely for alcohol withdrawal (4) Hypokalemia Current Visit: Yes Status: Acute Assessment and plan: Replaced and currently WNL (5) Hypomagnesemia Current Visit: Yes Status: Acute Assessment and plan: Level increased with 4 mg IV 1.4 this morning We will give another 2 g IV and continue by mouth repletion (6) Pancreatic mass Current Visit: Yes Status: Acute Assessment and plan: MRI abdomen 1.6 cm lesion of pancreatic tail Pseudocyst versus main duct intraductal papillary mucinous neoplasm (IPMN), Mild intrahepatic biliary duct dilation, marked hepatic steatosis, contracted gallbladder ERCP/EUS recommended (7) Ambulatory dysfunction Current Visit: Yes Status: Acute Assessment and plan: Foot xray normal 01/18/17 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 She is in no acute distress. Conversation is quite difficult although she denies any acute chest pain, shortness of breath or other new complaints - Constitutional Vitals: Temp Pulse Resp BP Pulse Ox 98.0 F 75 16 99/60 96 01/19/17 07:30 01/19/17 07:30 01/19/17 07:30 01/19/17 07:30 01/19/17 07:30 General appearance: Present: cachectic, disheveled, no acute distress - Head Head exam: Present: atraumatic, normocephalic - Eye Eye exam: Present: PERRL, conjuntiva pink, sclera anicteric Pupils: Present: PERRL - Neck Neck exam general surgery: Present: supple, trachea midline. Absent: lymphadenopathy - Respiratory Respiratory exam: Present: CTAB. Absent: accessory muscle use, rales, rhonchi, wheezes - Cardiovascular Cardiovascular exam: Present: RRR, +S1, +S2. Absent: diastolic murmur, gallop, rubs, systolic murmur - GI/Abdominal GI/Abdominal exam: Present: normal bowel sounds, soft, no peritoneal signs. Absent: distended, tenderness - Extremities Exam Extremities exam: Present: warm, radial pulses palpable and symetrical. Absent : calf tenderness, cyanotic, pedal edema - Neurological Exam Neurological exam: Present: CN II-XII intact, oriented X3, no focal deficits. Absent: pronater drift, facial droop, speech deficit - Skin Skin exam: Present: dry, intact Internal Medicine: Result - Labs CBC & Chem 7: 01/19/17 04:26 01/19/17 04:26 Labs: Short CBC 01/19/17 Range/Units 04:26 WBC 9.5 (4.3-11.1) K/mcL Hgb 10.7 L (11.5-15.4) g/dL Hct 31.1 L (35.3-44.9) % Plt Count 255 (140-400) K/mcL Neutrophils # 6.3 (1.6-8.9) K/mcL BMP 01/19/17 04:26 Sodium 132 L Potassium 4.1 Chloride 106 Carbon Dioxide 18 L BUN 7 Creatinine 0.47 L Glucose 158 H Calcium 7.6 L Liver Function 01/19/17 Range/Units 04:26 Total Bilirubin 7.5 H (0.2-1.2) mg/dL AST 135 H (5-34) Units/L ALT 89 H (0-55) Units/L Alkaline Phosphatase 171 H (38-126) Units/L Albumin 1.7 L (3.5-5.0) g/dL - ABG Interpretation ABG results: PT/INR, D-dimer PT 14.9 Seconds (9.4-12.1) H 01/18/17 13:00 Consult Discharge Plan - Plan Referrals: Kell Faye DO [Primary Care Provider] - <Jones Dean - Last Filed: 01/19/17 14:44> Date of Encounter: 01/19/17 - Constitutional Vitals: Temp Pulse Resp BP Pulse Ox 97.8 F 72 18 112/70 100 01/19/17 12:05 01/19/17 12:05 01/19/17 12:05 01/19/17 12:05 01/19/17 12:05 Internal Medicine: Result - Labs CBC & Chem 7: 01/19/17 04:26 01/19/17 04:26 Labs: Short CBC 01/19/17 Range/Units 04:26 WBC 9.5 (4.3-11.1) K/mcL Hgb 10.7 L (11.5-15.4) g/dL Hct 31.1 L (35.3-44.9) % Plt Count 255 (140-400) K/mcL Neutrophils # 6.3 (1.6-8.9) K/mcL BMP 01/19/17 04:26 Sodium 132 L Potassium 4.1 Chloride 106 Carbon Dioxide 18 L BUN 7 Creatinine 0.47 L Glucose 158 H Calcium 7.6 L Liver Function 01/19/17 Range/Units 04:26 Total Bilirubin 7.5 H (0.2-1.2) mg/dL AST 135 H (5-34) Units/L ALT 89 H (0-55) Units/L Alkaline Phosphatase 171 H (38-126) Units/L Albumin 1.7 L (3.5-5.0) g/dL - ABG Interpretation ABG results: PT/INR, D-dimer PT 14.9 Seconds (9.4-12.1) H 01/18/17 13:00 - Impressions Impressions Abdomen MRI 01/19/17 10:00 IMPRESSION: 1. Findings related to chronic pancreatitis with a 1.6 cm cystic pancreatic tail lesion which may represent residual pseudocyst versus a main duct IPMN. Recommend comparison with any prior CTs beyond 01/16/2017 if available. The main pancreatic duct is otherwise not well-visualized. 2. Mild intrahepatic biliary duct dilation which appears to terminate at the level of the gurvinder hepatis/hepatic duct with a questionable filling defect on the MRCP images at this level. Along with the above findings, recommend further evaluation with ERCP/EUS. 3. Hepatomegaly with marked hepatic steatosis. 4. Contracted gallbladder. D/ / 01/19/2017 12:18:13 Christy Minor MD / tara Interpreting Provider: Christy Minor MD - Attending Attestation I examined this patient and my medical decision-making was reviewed with the UNDRAPED ARTIST MODEL/PA/Advanced Practice Nurse/Resident Physician. I agree with the documented findings, disposition and treatment plan as described except to the extent set forth below. Ms. Brenner was seen and examined in rounds. I agree with the physical examination findings, assessment and plan as documented by Dr. Mateo Rios. Briefly, patient with long history of heavy alcohol use admitted due to alcoholic hepatitis. Additionally gram-negative rods in urine. Follow MRI of the abdomen. Continue with treatment with steroids. Monitor electrolytes including magnesium. Monitor LFTs.
[2017-01-19] MEDS ORDERED: Magnesium Sulfate 2 GM in D5% in Water 100 ML IVPB ONE (11:16)
--- NOTE | 2017-01-19 11:49 | Event Note ---
Date of Encounter: 01/19/17 Time of Encounter: 10:30 I attempted to see patient on 3 separate occasions this morning, but she was away for testing. Hepatitis profile negative. Recommend continuing methylprednisolone 32 mg daily and decrease by 8 mg every week for 4 weeks.
[2017-01-19] MEDS: methylPREDNISolone 4 MG TABLET PO SCH (13:26)
[2017-01-19] MEDS: traMADol 50 MG TABLET PO PRN (20:44)
[2017-01-19] MEDS: Melatonin 3 MG TABLET PO PRN (20:44)
[2017-01-20 05:01] LABS: Basophils % 0.2 %; Eosinophils % 0.1 %; Hematocrit 33.2 % (35.3-44.9); Hemoglobin 11.6 g/dL (11.5-15.4); Immature Granulocytes % 0.5 % (0-4); Lymphocytes # 2.1 K/mcL (0.6-4.6); Lymphocytes % 18.1 %; Mean Corpuscular HGB Conc 34.9 g/dL (31.6-35.5); Mean Corpuscular Hemoglobin 35.5 pg (28.0-33.3); Mean Corpuscular Volume 101.5 fL (83.0-100.0); Mean Platelet Volume 12.3 fL (9.4-12.4); Monocytes # 0.5 K/mcL (0.0-1.3); Monocytes % 4.1 %; Neutrophils # 8.8 K/mcL (1.6-8.9); Platelet Count 267 K/mcL (140-400); Red Blood Count 3.27 M/mcL (3.82-4.97); Red Cell Distribution Width 17.9 % (11.5-14.5)
[2017-01-20 05:31] LABS: Alanine Aminotransferase 104 Units/L (0-55); Albumin/Globulin Ratio 0.5 (1.1-2.2); Alkaline Phosphatase 183 Units/L (38-126); Aspartate Amino Transferase 153 Units/L (5-34); BUN/Creatinine Ratio 18 (6-26); Bilirubin,Total 8.6 mg/dL (0.2-1.2); Blood Urea Nitrogen 9 mg/dL (7-20); Carbon Dioxide 20 mEq/L (19-29); Chloride 103 mEq/L (98-109); Globulin 3.6 g/dL (2.4-3.5); Glucose 146 mg/dL (70-99); Osmolality,Calculated 275 (280-300); Potassium 4.6 mEq/L (3.5-4.5); Sodium 132 mEq/L (136-145); Total Protein 5.5 g/dL (6.0-8.3); eGFR For African Americans > 60 (> 60); eGFR For Non-African Americans > 60 (> 60)
[2017-01-20 05:35] LABS: Albumin 1.9 g/dL (3.5-5.0)
[2017-01-20 06:52] LABS: Magnesium 1.2 mg/dL (1.6-2.6)
[2017-01-20 07:27] LABS: AFP Tumor Marker Non-Pregnant 3 ng/mL (0-9); Alpha-1-Antitrypsin 170 mg/dL (90-200)
[2017-01-20 07:31] LABS: F-Actin (sm muscle) Ab IgG 12 Units (0-19)
[2017-01-20] MEDS: Magnesium Oxide 400 MG TABLET PO SCH ×3 (08:49→20:05)
[2017-01-20] MEDS: Insulin LISPRO 300 UNITS/3 ML VIAL SQ SCH ×4 (08:49→20:41)
[2017-01-20] MEDS: methylPREDNISolone 4 MG TABLET PO SCH ×2 (08:50→11:47)
[2017-01-20] MEDS: Vitamin B Complex/Vit C/Vit E 1 EACH TABLET PO SCH ×2 (08:50→11:47)
[2017-01-20] MEDS: Folic Acid 1 MG TABLET PO SCH ×2 (08:50→11:47)
[2017-01-20] MEDS: Thiamine (B-1) 100 MG TABLET PO SCH ×2 (08:51→11:47)
--- NOTE | 2017-01-20 09:58 | Internal Med Progress Note ---
<Mateo Rios - Last Filed: 01/20/17 09:50> Date of Encounter: 01/20/17 Time of Encounter: 09:51 - Assessment and plan (1) Alcoholic cirrhosis of liver Current Visit: Yes Status: Chronic Assessment and plan: Total bilirubin elevated but trending down Liver enzymes slightly better than admission but still elevated Remaining hepatic workup pending Qualifiers: Ascites presence: without ascites Qualified Code(s): K70.30 - Alcoholic cirrhosis of liver without ascites (2) Alcoholic hepatitis Current Visit: Yes Status: Acute Assessment and plan: Continue methylprednisolone 32 mg daily and decrease by 8 mg every week for 4 weeks 01/18/17 Soraida discriminant function is 33 Change prednisone to medrol per GI recs MELD score is 21. Transainitis and Hyperbilirubinemia is improving Encourage liberal fluid intake Hold IVF GI evaluation appreciated Qualifiers: Ascites presence: without ascites Qualified Code(s): K70.10 - Alcoholic hepatitis without ascites (3) Alcoholism /alcohol abuse Current Visit: Yes Status: Acute Assessment and plan: 01/18/17 Patient ingests half to 1 gallon of Vodka weekly She reports never having had a withdrawal event Monitor closely for alcohol withdrawal (4) Hypokalemia Current Visit: Yes Status: Acute Assessment and plan: Replaced and currently WNL (5) Hypomagnesemia Current Visit: Yes Status: Acute Assessment and plan: Magnesium still low, will continue to replete (6) Pancreatic mass Current Visit: Yes Status: Acute Assessment and plan: MRI abdomen 1.6 cm lesion of pancreatic tail Pseudocyst versus main duct intraductal papillary mucinous neoplasm (IPMN), Mild intrahepatic biliary duct dilation, marked hepatic steatosis, contracted gallbladder Spoke with GI, will unlikely need ERCP/EUS in the inpatient setting We will continue to follow GI recommendations (7) Ambulatory dysfunction Current Visit: Yes Status: Acute Assessment and plan: Prior untreated strokes and chronic alcoholism contributory Difficulty with ambulation is chronic according to patient 01/18/17 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 She is in no acute distress. She denies any abdominal pain, chest pain, palpitations, shortness of breath or other new complaints. She does not feel tremulous, diaphoretic, and denies headache - Constitutional Vitals: Temp Pulse Resp BP Pulse Ox 97.7 F 73 16 103/58 96 01/20/17 07:44 01/20/17 07:44 01/20/17 07:44 01/20/17 07:44 01/20/17 08:40 General appearance: Present: cachectic, disheveled, no acute distress - Head Head exam: Present: atraumatic, normocephalic - Eye Eye exam: Present: PERRL, conjuntiva pink, sclera anicteric Pupils: Present: PERRL - Neck Neck exam general surgery: Present: supple, trachea midline. Absent: lymphadenopathy - Respiratory Respiratory exam: Present: CTAB. Absent: accessory muscle use, rales, rhonchi, wheezes - Cardiovascular Cardiovascular exam: Present: RRR, +S1, +S2. Absent: diastolic murmur, gallop, rubs, systolic murmur - GI/Abdominal GI/Abdominal exam: Present: normal bowel sounds, soft, no peritoneal signs. Absent: distended, tenderness - Extremities Exam Extremities exam: Present: warm, radial pulses palpable and symetrical. Absent : calf tenderness, cyanotic, pedal edema - Neurological Exam Neurological exam: Present: CN II-XII intact, oriented X3, no focal deficits. Absent: pronater drift, facial droop, speech deficit - Skin Skin exam: Present: dry, intact Internal Medicine: Result - Labs CBC & Chem 7: 01/20/17 03:41 01/20/17 03:41 Labs: Short CBC 01/20/17 Range/Units 03:41 WBC 11.5 H (4.3-11.1) K/mcL Hgb 11.6 (11.5-15.4) g/dL Hct 33.2 L (35.3-44.9) % Plt Count 267 (140-400) K/mcL Neutrophils # 8.8 (1.6-8.9) K/mcL BMP 01/20/17 03:41 Sodium 132 L Potassium 4.6 H Chloride 103 Carbon Dioxide 20 BUN 9 Creatinine 0.50 L Glucose 146 H Calcium 8.0 L Liver Function 01/20/17 Range/Units 03:41 Total Bilirubin 8.6 H (0.2-1.2) mg/dL AST 153 H (5-34) Units/L ALT 104 H (0-55) Units/L Alkaline Phosphatase 183 H (38-126) Units/L Albumin 1.9 L (3.5-5.0) g/dL - ABG Interpretation ABG results: PT/INR, D-dimer PT 14.9 Seconds (9.4-12.1) H 01/18/17 13:00 - Impressions Impressions Abdomen MRI 01/19/17 10:00 IMPRESSION: 1. Findings related to chronic pancreatitis with a 1.6 cm cystic pancreatic tail lesion which may represent residual pseudocyst versus a main duct IPMN. Recommend comparison with any prior CTs beyond 01/16/2017 if available. The main pancreatic duct is otherwise not well-visualized. 2. Mild intrahepatic biliary duct dilation which appears to terminate at the level of the gurvinder hepatis/hepatic duct with a questionable filling defect on the MRCP images at this level. Along with the above findings, recommend further evaluation with ERCP/EUS. 3. Hepatomegaly with marked hepatic steatosis. 4. Contracted gallbladder. D/ / 01/19/2017 12:18:13 Christy Minor MD / tara Interpreting Provider: Christy Minor MD Consult Discharge Plan - Plan Referrals: Ren Cohn DO [Resident] - 03/29/17 3:00 pm <Jones Dean - Last Filed: 01/20/17 16:54> Date of Encounter: 01/20/17 - Constitutional Vitals: Temp Pulse Resp BP Pulse Ox 97.9 F 73 16 110/58 98 01/20/17 14:49 01/20/17 14:49 01/20/17 14:49 01/20/17 14:49 01/20/17 14:49 Internal Medicine: Result - Labs CBC & Chem 7: 01/20/17 03:41 01/20/17 03:41 Labs: Short CBC 01/20/17 Range/Units 03:41 WBC 11.5 H (4.3-11.1) K/mcL Hgb 11.6 (11.5-15.4) g/dL Hct 33.2 L (35.3-44.9) % Plt Count 267 (140-400) K/mcL Neutrophils # 8.8 (1.6-8.9) K/mcL BMP 01/20/17 03:41 Sodium 132 L Potassium 4.6 H Chloride 103 Carbon Dioxide 20 BUN 9 Creatinine 0.50 L Glucose 146 H Calcium 8.0 L Liver Function 01/20/17 Range/Units 03:41 Total Bilirubin 8.6 H (0.2-1.2) mg/dL AST 153 H (5-34) Units/L ALT 104 H (0-55) Units/L Alkaline Phosphatase 183 H (38-126) Units/L Albumin 1.9 L (3.5-5.0) g/dL - ABG Interpretation ABG results: PT/INR, D-dimer PT 14.9 Seconds (9.4-12.1) H 01/18/17 13:00 - Attending Attestation I examined this patient and my medical decision-making was reviewed with the TREAD BUILDER/PA/Advanced Practice Nurse/Resident Physician. I agree with the documented findings, disposition and treatment plan as described except to the extent set forth below. Follow GI input in regards to possible ERCP EUS. Continue steroids. monitor electrolytes. Supplement magnesium.
[2017-01-20] MEDS: Magnesium Sulfate 2 GM in D5% in Water 100 ML IVPB ONE ×2 (10:57→11:47)
[2017-01-20] MEDS: traMADol 50 MG TABLET PO PRN ×2 (12:02→18:48)
[2017-01-20 15:10] LABS: ANA IgG by ELISA NONE DETECTED (None Detected)
[2017-01-20] MEDS: Melatonin 3 MG TABLET PO PRN (18:48)
[2017-01-21 04:45] LABS: Basophils # 0.1 K/mcL (0.0-0.2); Basophils % 0.5 %; Eosinophils % 0.4 %; Hematocrit 32.6 % (35.3-44.9); Hemoglobin 11.5 g/dL (11.5-15.4); Immature Granulocytes % 0.3 % (0-4); Lymphocytes # 2.2 K/mcL (0.6-4.6); Lymphocytes % 22.6 %; Mean Corpuscular HGB Conc 35.3 g/dL (31.6-35.5); Mean Corpuscular Hemoglobin 35.6 pg (28.0-33.3); Mean Corpuscular Volume 100.9 fL (83.0-100.0); Mean Platelet Volume 11.8 fL (9.4-12.4); Monocytes # 0.4 K/mcL (0.0-1.3); Monocytes % 4.2 %; Platelet Count 268 K/mcL (140-400); Red Blood Count 3.23 M/mcL (3.82-4.97); Red Cell Distribution Width 17.9 % (11.5-14.5)
[2017-01-21 05:05] LABS: BUN/Creatinine Ratio 17 (6-26); Blood Urea Nitrogen 8 mg/dL (7-20); Calcium 7.5 mg/dL (8.6-10.8); Carbon Dioxide 25 mEq/L (19-29); Chloride 100 mEq/L (98-109); Glucose 123 mg/dL (70-99); Magnesium 1.3 mg/dL (1.6-2.6); Osmolality,Calculated 270 (280-300); eGFR For African Americans > 60 (> 60); eGFR For Non-African Americans > 60 (> 60)
[2017-01-21 05:19] LABS: Sodium 130 mEq/L (136-145)
[2017-01-21 07:44] LABS: Ceruloplasmin 30 mg/dL (17-54); Myeloperoxidase Ab 4 AU/mL (0-19); Serine Protease-3 Antibody 1 AU/mL (0-19)
[2017-01-21] MEDS: Insulin LISPRO 300 UNITS/3 ML VIAL SQ SCH ×4 (08:31→22:04)
[2017-01-21] MEDS: Thiamine (B-1) 100 MG TABLET PO SCH (08:33)
[2017-01-21] MEDS: methylPREDNISolone 4 MG TABLET PO SCH (08:33)
[2017-01-21] MEDS: Folic Acid 1 MG TABLET PO SCH (08:33)
[2017-01-21] MEDS: Vitamin B Complex/Vit C/Vit E 1 EACH TABLET PO SCH (08:33)
[2017-01-21] MEDS: Magnesium Oxide 400 MG TABLET PO SCH ×2 (08:33→20:14)
[2017-01-21] MEDS: traMADol 50 MG TABLET PO PRN ×2 (10:36→18:41)
--- NOTE | 2017-01-21 17:33 | Discharge Summary ---
<Mateo Rios - Last Filed: 01/21/17 17:30> Date of Encounter: 01/21/17 Time of Encounter: 09:00 - Discharge Diagnosis (2) Alcoholic cirrhosis of liver Priority: Primary Status: Chronic Qualifiers: Ascites presence: without ascites Qualified Code(s): K70.30 - Alcoholic cirrhosis of liver without ascites (3) Alcoholic hepatitis Priority: Primary Status: Acute Qualifiers: Ascites presence: without ascites Qualified Code(s): K70.10 - Alcoholic hepatitis without ascites (4) Alcoholism /alcohol abuse Priority: Secondary Status: Acute (5) Hypokalemia Priority: Secondary Status: Acute (6) Hypomagnesemia Priority: Secondary Status: Acute (7) Pancreatic mass Priority: Secondary Status: Acute (8) Ambulatory dysfunction Priority: Secondary Status: Acute - Discharge Medications Prescriptions: Magnesium Oxide [Mag-Ox] 400 mg PO TID #180 tablet MethylPREDNISolone [Medrol] 32 mg PO DAILY #116 tablet Home Medications: Magnesium Oxide [Mag-Ox] 400 mg PO TID #180 tablet 01/21/17 [Rx] MethylPREDNISolone [Medrol] 32 mg PO DAILY #116 tablet 01/21/17 [Rx] Allergies/Adverse Reactions: Allergies No Known Allergies Allergy (Verified 01/16/17 17:07) Procedures/tests Complete & Pending: Procedures Performed prior 72 hours Category Date Time Status MR abdomen wo/w con [MR] Routine MRI 01/19/17 10:00 Completed Date of admission: 01/16/17 22:57 Primary care physician: Kell Faye DO Consults: 01/17/17 01:58 Consult to Physical Therapy [CONS] Routine Comment: Evaluate, develop and implement POC Consult to Elastic Cutter [CONS] Routine Reason for SW Consult: Ambulatory dysfunction; alcohol abuse 01/17/17 02:01 OT [Consult to Occupational Therapy] [CONS] Routine Comment: Evaluate, develop and implement POC 01/17/17 03:29 Consult to Nutrition [CONS] Routine Comment: Consulting Provider: NUTRITION Reason for Dietary Consult: Other Other:: Malnutrition 01/17/17 03:31 Consult to Gastroenterology [CONS] Routine Consulting Provider: Gastroenterology Meally Reason for Consult: Alcoholic hepatitis; Pancreatic cystic lesion Call Completed: No Discharging clinician: Mateo Rios Anticipated date of discharge: 01/21/17 - Patient Status Disposition: Transfer SNF Condition: Serious Functional capacity at discharge: uses cane/walker Overall status at discharge: patient is progressing back to baseline - Discharge Instructions Follow Up With: Ren Cohn DO [Resident] - 03/29/17 3:00 pm Yariel Del Rio MD [Partnered Physician] - (We have requested a follow up appointment with Dr Del Rio. The office will call you at home with an appointment date and time.) Additional Instructions: Follow-up with PCP in 1 week Follow-up with gastroenterology within 2 weeks - Diet and Activity Activity: as per physical therapy Diet: advance to your usual diet, other (Recommend complete alcohol abstinence) Hospital course: Ms. Brenner is a 61 year old female with past medical history significant for alcoholic cirrhosis, pancreatic cyst, chronic pancreatitis, and CAD. She also has a history of multiple CVAs that were reportedly untreated due to patient refusal to go to the hospital. Per various reports, she drinks around 1/2-1 gallon of vodka daily. On 01/16/17, her boyfriend brought her into the emergency department because he was concerned that her baseline generalized weakness had recently worsened and she was unable to stand up on her own. Initial EKG was negative for acute ischemia, chest x-ray negative for acute cardiopulmonary abnormalities, CT head showed multifocal chronic infarctions in right parietotemporal region, CT abdomen/pelvis scan showed severe fatty infiltration of the liver and cyst on pancreatic tail, follow-up MRI characterized pancreatic lesion as possible pseudocyst and also revealed biliary duct dilatation of the liver. Calcium was low at 7.6, magnesium was low throughout hospital stay and repleted with IV and by mouth supplementation. Patient provided with a prescription for continued by mouth magnesium repletion. Her discriminating factor was 40. Gastroenterology was consulted and recommended long taper of methylprednisolone which patient was given a prescription for upon discharge. She may possibly need ERCP/EUS as an outpatient. GI would like to see her as an outpatient 2 weeks following discharge. A battery of labs were also obtained and were grossly normal including AMA, alpha 1 antitrypsin, ceruloplasmin, F-actin, antimyeloperoxidase antibody, and profile for hep A, B, C. Throughout Ms. Brenner's hospital stay, she frequently refused recommended treatments including IV medications. She became very upset when alcohol abstinence was recommended however this was reiterated multiple times regardless - Time Spent with Patient Total time spent providing and/or coordinating discharge services: Greater than 30 minutes - Constitutional Vitals: Temp Pulse Resp BP Pulse Ox 98.1 F 74 18 143/74 97 01/21/17 15:34 01/21/17 15:34 01/21/17 15:34 01/21/17 15:34 01/21/17 15:34 General appearance: Present: cachectic, disheveled, no acute distress - Head Head exam: Present: atraumatic, normocephalic - Eye Eye exam: Present: PERRL, conjuntiva pink, sclera anicteric Pupils: Present: PERRL - Neck Neck exam general surgery: Present: supple, trachea midline. Absent: lymphadenopathy - Respiratory Respiratory exam: Present: CTAB. Absent: accessory muscle use, rales, rhonchi, wheezes - Cardiovascular Cardiovascular exam: Present: RRR, +S1, +S2. Absent: diastolic murmur, gallop, rubs, systolic murmur - GI/Abdominal GI/Abdominal exam: Present: normal bowel sounds, soft, no peritoneal signs. Absent: distended, tenderness - Extremities Exam Extremities exam: Present: warm, radial pulses palpable and symetrical. Absent : calf tenderness, cyanotic, pedal edema - Neurological Exam Neurological exam: Present: CN II-XII intact, oriented X3, no focal deficits. Absent: pronater drift, facial droop, speech deficit - Skin Skin exam: Present: dry, intact - VTE Documentation of Mechanical Device: Intermittent pneumatic compression device <Jones Dean - Last Filed: 01/21/17 18:18> Date of Encounter: 01/21/17 Procedures/tests Complete & Pending: Procedures Performed prior 72 hours Category Date Time Status MR abdomen wo/w con [MR] Routine MRI 01/19/17 10:00 Completed Date of admission: 01/16/17 22:57 Primary care physician: Kell Faye DO Consults: 01/17/17 01:58 Consult to Physical Therapy [CONS] Routine Comment: Evaluate, develop and implement POC Consult to Elastic Cutter [CONS] Routine Reason for SW Consult: Ambulatory dysfunction; alcohol abuse 01/17/17 02:01 OT [Consult to Occupational Therapy] [CONS] Routine Comment: Evaluate, develop and implement POC 01/17/17 03:29 Consult to Nutrition [CONS] Routine Comment: Consulting Provider: NUTRITION Reason for Dietary Consult: Other Other:: Malnutrition 01/17/17 03:31 Consult to Gastroenterology [CONS] Routine Consulting Provider: Gastroenterology Pura Reason for Consult: Alcoholic hepatitis; Pancreatic cystic lesion Call Completed: No Hospital course: Ms. Brenner is a 61 year old female - Time Spent with Patient Total time spent providing and/or coordinating discharge services: - Constitutional Vitals: Temp Pulse Resp BP Pulse Ox 98.1 F 74 18 143/74 97 01/21/17 15:34 01/21/17 15:34 01/21/17 15:34 01/21/17 15:34 01/21/17 15:34 - Attending Attestation I examined this patient and my medical decision-making was reviewed with the WHOLESALE ACCOUNT EXECUTIVE/PA/Advanced Practice Nurse/Resident Physician. I agree with the documented findings, disposition and treatment plan as described except to the extent set forth below. Ms. Brenner was seen and examined on rounds. Alcoholic hepatitis, continue with steroids. GI does not plan to perform any interventions at this point. Follow up as outpatient. Continue with the steroids, patient benefits from rehabilitation, however she declines. D/C today, continue with supplement the magnesium and potassium accordingly by mouth. Monitor as outpatient and follow up with primary care physician and GI.
--- NOTE | 2017-01-21 18:06 | Physician Discharge Referral ---
ExtendedCare Referral Info Transfer To: Extended care rehab facility Provider in Charge after Transfer: PCP Institutional Level of Care: Skilled - Diagnosis (1) Generalized weakness Priority: Primary Status: Acute (2) Alcoholic cirrhosis of liver Priority: Primary Status: Chronic (3) Alcoholic hepatitis Priority: Primary Status: Acute (4) Alcoholism /alcohol abuse Priority: Secondary Status: Acute (5) Hypokalemia Priority: Secondary Status: Acute (6) Hypomagnesemia Priority: Secondary Status: Acute (7) Pancreatic mass Priority: Secondary Status: Acute (8) Ambulatory dysfunction Priority: Secondary Status: Acute - Transfer Medications Prescriptions: Magnesium Oxide [Mag-Ox] 400 mg PO TID #180 tablet MethylPREDNISolone [Medrol] 32 mg PO DAILY #116 tablet Home Medications: Magnesium Oxide [Mag-Ox] 400 mg PO TID #180 tablet 01/21/17 [Rx] MethylPREDNISolone [Medrol] 32 mg PO DAILY #116 tablet 01/21/17 [Rx] Allergies/Adverse Reactions: Allergies No Known Allergies Allergy (Verified 01/16/17 17:07) - Respiratory Orders None Smoking Cessation: Smoking cessation has been advised. For more information, call the [employer] Tobacco Quit Line at 5-124-YXXZNOW. - Advance Directives Code Status: Full Code - Mobility Orders Chair - Rehabiliation Orders Rehab Potential: Fair Rehab Orders: Evaluation for Physical Therapy, Evaluation for Occupational Therapy - Diet Orders Regular CERTIFICATION: I certify that the transfer of the above named patient to an Extended Care Facility is necessary for the continuing treatment of the diagnosis listed. The above information is true and accurate reflection of patient's current condition. Confidential - Redisclosure prohibited without a patient's written consent.
[2017-01-21] MEDS: Melatonin 3 MG TABLET PO PRN ×2 (18:41→20:14)
[2017-01-21] MEDS ORDERED: Melatonin 3 MG TABLET PO PRN (20:52)
--- NOTE | 2017-01-22 08:07 | Event Note ---
Date of Encounter: 01/22/17 Time of Encounter: 08:07 Patient was seen and examined at bedside this morning. She denies any overnight events or changes in symptomatology. She denies chest pain, shortness of breath, or abdominal pain. She was discharged yesterday however is awaiting social arrangements including ride from hospital from her partner who is her main caregiver at this time.
[2017-01-22] MEDS: Insulin LISPRO 300 UNITS/3 ML VIAL SQ SCH ×2 (10:43→14:55)
[2017-01-22] MEDS: Vitamin B Complex/Vit C/Vit E 1 EACH TABLET PO SCH (10:49)
[2017-01-22] MEDS: Folic Acid 1 MG TABLET PO SCH (10:49)
[2017-01-22] MEDS: methylPREDNISolone 4 MG TABLET PO SCH (10:49)
[2017-01-22] MEDS: Magnesium Oxide 400 MG TABLET PO SCH (10:49)
[2017-01-22] MEDS: Thiamine (B-1) 100 MG TABLET PO SCH (10:53)
[2017-01-22 10:55] VITALS: BP 137/63
[2017-01-22] MEDS: traMADol 50 MG TABLET PO PRN (14:55)
== END 2017-01-22 19:42 | disposition home or self-care (01) | DRG 280 ==
LOC: EMEROO 17:06 → 3BNU 17:06 → SUATTDRO 22:57
PROVIDERS: ADMIT Internal Medicine; ATTEND Internal Medicine

== ENCOUNTER 2017-06-02 03:14 | Inpatient (IN) ==
[2017-06-02] MEDS ORDERED: 0.9 % Sodium Chloride 1,000 ML IVC ONE ×2 (03:42→07:10)
[2017-06-02 05:06] LABS: Basophils % 0.1 %; Hematocrit 41.4 % (35.3-44.9); Hemoglobin 13.5 g/dL (11.5-15.4); Immature Granulocytes % 0.6 % (0-4); Lymphocytes # 0.7 K/mcL (0.6-4.6); Lymphocytes % 4.9 %; Mean Corpuscular HGB Conc 32.6 g/dL (31.6-35.5); Mean Corpuscular Hemoglobin 31.8 pg (28.0-33.3); Mean Corpuscular Volume 97.6 fL (83.0-100.0); Mean Platelet Volume 12.1 fL (9.4-12.4); Monocytes # 0.5 K/mcL (0.0-1.3); Monocytes % 3.5 %; Neutrophils # 13.3 K/mcL (1.6-8.9); Platelet Count 357 K/mcL (140-400); Red Blood Count 4.24 M/mcL (3.82-4.97); Red Cell Distribution Width 12.9 % (11.5-14.5); Segmented Neutrophils % 90.9 %
[2017-06-02 05:08] LABS: INR 0.9; Prothrombin Time 9.7 Seconds (9.4-12.1)
[2017-06-02 05:14] LABS: Bilirubin,Urine Negative (Negative); Blood,Urine Negative (Negative); Clarity,Urine Clear (Clear); Color,Urine Orange (Yellow); Glucose,Urine (UA) >=1000 mg/dL (Normal); Ketones,Urine 15 mg/dL (Negative); Leukocyte Esterase,Urine Negative (Negative); Nitrite,Urine Positive (Negative); Protein,Urine Negative (Neg-Trace); Specific Gravity,Urine > 1.030 (1.010-1.025); Urobilinogen,Urine Normal (Normal)
[2017-06-02 05:14] LABS: Alanine Aminotransferase 23 Units/L (0-55); Albumin 4.2 g/dL (3.5-5.0); Albumin/Globulin Ratio 1.1 (1.1-2.2); Alkaline Phosphatase 87 Units/L (38-126); Aspartate Amino Transferase 15 Units/L (5-34); BUN/Creatinine Ratio 27 (6-26); Bilirubin,Total 0.5 mg/dL (0.2-1.2); Blood Urea Nitrogen 50 mg/dL (7-20); Calcium 11.7 mg/dL (8.6-10.8); Carbon Dioxide 16 mEq/L (19-29); Chloride 101 mEq/L (98-109); Potassium 4.9 mEq/L (3.5-4.5); Sodium 140 mEq/L (136-145); Total Protein 8.2 g/dL (6.0-8.3); eGFR For African Americans 34 (> 60); eGFR For Non-African Americans 28 (> 60)
[2017-06-02 05:26] LABS: Squamous Epithelial Cell,Urine Few per lpf (None-Few)
[2017-06-02 05:30] LABS: Osmolality,Calculated 363 (280-300)
[2017-06-02 05:33] LABS: Glucose 1171 mg/dL (70-99)
[2017-06-02] MEDS ORDERED: *HR* Dextrose 50 % in Water (Syg) 50 ML SYRINGE IVP PRN ×3 (06:02→23:44)
[2017-06-02 06:07] LABS: Beta-Hydroxybutyric Acid > 2.00 mmol/L (0.02-0.27)
[2017-06-02] MEDS ORDERED: Insulin Human Regular 100 UNIT in 0.9 % Sodium Chloride 100 ML IVC SCH ×2 (06:15→08:00)
[2017-06-02] MEDS ORDERED: Insulin Regular, Human 100 UNIT/ML IV SCH (06:15)
--- NOTE | 2017-06-02 06:29 | Emergency Department Note ---
Disposition Clinical Impression: Hyperglycemia, Renal insufficiency, UTI (urinary tract infection) Disposition: Admitted As Inpatient Condition: Critical Referrals: Jovita Meadows DO [Primary Care Provider] - Forms: ED Satisfaction Letter Time of Disposition: 07:13 Weakness HPI - General Chief complaint: ED Weakness Stated complaint: weakness Time Seen by Provider: 06/02/17 03:36 Source: EMS Mode of arrival: EMS Limitations: no limitations, physical limitation Nursing Notes Reviewed: Yes Vital Signs Reviewed: Yes - History of Present Illness HPI Narrative: 61-year-old female patient presents to the emergency department with complaint of generalized weakness and weight loss. She denies any fever, chills, nausea, vomiting. She denies any chest pain, shortness of breath, dizziness or lightheadedness. Patient states that she is been progressively losing weight over the last several months after her recent admission. Patient states that she has had a significant amount of increased thirst, difficulty ambulating and family member at the bedside states that she has had some intermittent confusion. Pt Subjective Complaint: generalized weakness/fatigue, difficulty ambulating Onset (ago): day(s) (3-4) Duration: constant Location: generalized Migration: none Pain Severity: moderate Pain Scale: 4 If pain, quality: aching Improves with: none Worsens with: none Context: history of similar Associated symptoms: Reports: denies other symptoms - Related Data Previous Rx's Medication Instructions Recorded Magnesium Oxide [Mag-Ox] 400 mg PO TID #180 tablet 01/21/17 methylPREDNISolone [Medrol] 32 mg PO DAILY #116 tablet 01/21/17 Allergies Allergy/AdvReac Type Severity Reaction Status Date / Time No Known Allergies Allergy Verified 01/16/17 17:07 All systems ED: reviewed and negative except as stated. Constitutional: Reports: weakness. Denies: fever, chills Cardiovascular: Denies: chest pain, palpitations Respiratory: Denies: cough, dyspnea Gastrointestinal: Denies: abdominal pain, nausea, vomiting Musculoskeletal: Denies: back pain, neck pain Integumentary: Denies: rash, abrasion, lesions Neurological: Denies: headache Psychiatric: Denies: anxiety, depression, suicidal thoughts, homicidal thoughts Past Medical History - Past Medical History Attestation: Yes The following information was validated with the patient. Source: patient, nursing notes reviewed Medical history: Reports: coronary artery disease, CVA, hyperlipidemia, liver disease, TIA Psychiatric history: Reports: no psych history - Social History Smoking Status: Current every day smoker Smokeless Tobacco Status: No Alcohol use: Reports: heavy Drug use: Reports: none Physical Exam - General Limitations: physical limitation General appearance: alert, cachectic - Head Head exam: atraumatic, normocephalic, normal inspection - Eye Eye exam: Present: normal appearance, PERRL - Neck Neck exam: Present: normal inspection, full ROM, trachea midline - Chest Chest inspection: Present: normal inspection, symmetric chest wall rise - Respiratory Respiratory exam: Present: normal lung sounds bilaterally. Absent: respiratory distress - Cardiovascular Cardiovascular exam: Present: normal rhythm, tachycardia, normal heart sounds - Extremities Exam Extremities exam: Present: normal inspection, full ROM - Expanded Lower Extremity Exam Gait: observed and normal - Back Exam Back exam: Present: normal inspection, full ROM - Neurological Exam Neurological exam: Present: alert, oriented X3 - Psychiatric Psychiatric exam: Present: normal affect, normal mood - Skin Skin exam: Present: warm, dry, intact, normal color Course - Consultations Consultation #1: I discussed this patient's case with the hospitalist, he gladly accepts patient for admission, antibiotics ordered as well as additional fluids. I discussed admission with the patient and family member at the bedside and they verbalized understanding and agreement with plan of care. Time: 07:07 Vital Signs Temperature 98.1 F 06/02/17 03:23 Pulse Rate 118 06/02/17 03:23 Respiratory Rate 18 06/02/17 03:23 Blood Pressure 122/94 06/02/17 03:23 O2 Sat by Pulse Oximetry 96 06/02/17 03:23 Temperature 98.1 F 06/02/17 03:23 Pulse Rate 112 06/02/17 05:09 Respiratory Rate 18 06/02/17 05:09 Blood Pressure 126/89 06/02/17 05:09 O2 Sat by Pulse Oximetry 97 06/02/17 05:09 Oxygen Delivery Oxygen Delivery Room Air Weakness - Lab Data Result diagrams: 06/02/17 04:52 06/02/17 04:52 Lab Results 06/02/17 06/02/17 06/02/17 Range/Units 04:52 04:52 04:52 WBC 14.6 H (4.3-11.1) K/mcL RBC 4.24 (3.82-4.97) M/mcL Hgb 13.5 (11.5-15.4) g/dL Hct 41.4 (35.3-44.9) % MCV 97.6 (83.0-100.0) fL MCH 31.8 (28.0-33.3) pg MCHC 32.6 (31.6-35.5) g/dL RDW 12.9 (11.5-14.5) % Plt Count 357 (140-400) K/mcL MPV 12.1 (9.4-12.4) fL Immature Gran % 0.6 (0-4) % Seg Neutrophils % 90.9 % Lymphocytes % 4.9 % Monocytes % 3.5 % Eosinophils % 0.0 % Basophils % 0.1 % Neutrophils # 13.3 H (1.6-8.9) K/mcL Lymphocytes # 0.7 (0.6-4.6) K/mcL Monocytes # 0.5 (0.0-1.3) K/mcL Eosinophils # 0.0 (0.0-0.6) K/mcL Basophils # 0.0 (0.0-0.2) K/mcL PT (9.4-12.1) Seconds INR APTT (26.0-36.0) Seconds Sodium 140 (136-145) mEq/L Potassium 4.9 H (3.5-4.5) mEq/L Chloride 101 (98-109) mEq/L Carbon Dioxide 16 L (19-29) mEq/L BUN 50 H (7-20) mg/dL Creatinine 1.82 H (0.57-1.11) mg/dL Est GFR ( Amer) 34 L (> 60) Est GFR (Non-Af Amer) 28 L (> 60) BUN/Creatinine Ratio 27 H (6-26) Glucose 1171 H* (70-99) mg/dL Calculated Osmolality 363 H (280-300) Calcium 11.7 H (8.6-10.8) mg/dL Total Bilirubin 0.5 (0.2-1.2) mg/dL AST 15 (5-34) Units/L ALT 23 (0-55) Units/L Alkaline Phosphatase 87 (38-126) Units/L Troponin I 0.01 (0-0.03) ng/mL Serum Total Protein 8.2 (6.0-8.3) g/dL Albumin 4.2 (3.5-5.0) g/dL Globulin 4.0 H (2.4-3.5) g/dL Albumin/Globulin Ratio 1.1 (1.1-2.2) Urine Color (Yellow) Urine Clarity (Clear) Urine pH (5.0-8.0) pH Units Ur Specific [place] (1.010-1.025) Urine Protein (Neg-Trace) mg/dL Urine Glucose (UA) (Normal) mg/dL Urine Ketones (Negative) mg/dL Urine Blood (Negative) Urine Nitrite (Negative) Urine Bilirubin (Negative) Urine Urobilinogen (Normal) mg/dL Ur Leukocyte Esterase (Negative) Urine Microscopic RBC Urine Microscopic WBC Ur Squamous Epith Cells (None-Few) per lpf Urine Bacteria Hyaline Casts Ur Culture Indicated? (NO) 06/02/17 06/02/17 Range/Units 04:52 05:02 WBC (4.3-11.1) K/mcL RBC (3.82-4.97) M/mcL Hgb (11.5-15.4) g/dL Hct (35.3-44.9) % MCV (83.0-100.0) fL MCH (28.0-33.3) pg MCHC (31.6-35.5) g/dL RDW (11.5-14.5) % Plt Count (140-400) K/mcL MPV (9.4-12.4) fL Immature Gran % (0-4) % Seg Neutrophils % % Lymphocytes % % Monocytes % % Eosinophils % % Basophils % % Neutrophils # (1.6-8.9) K/mcL Lymphocytes # (0.6-4.6) K/mcL Monocytes # (0.0-1.3) K/mcL Eosinophils # (0.0-0.6) K/mcL Basophils # (0.0-0.2) K/mcL PT 9.7 (9.4-12.1) Seconds INR 0.9 APTT 25.0 L (26.0-36.0) Seconds Sodium (136-145) mEq/L Potassium (3.5-4.5) mEq/L Chloride (98-109) mEq/L Carbon Dioxide (19-29) mEq/L BUN (7-20) mg/dL Creatinine (0.57-1.11) mg/dL Est GFR ( Amer) (> 60) Est GFR (Non-Af Amer) (> 60) BUN/Creatinine Ratio (6-26) Glucose (70-99) mg/dL Calculated Osmolality (280-300) Calcium (8.6-10.8) mg/dL Total Bilirubin (0.2-1.2) mg/dL AST (5-34) Units/L ALT (0-55) Units/L Alkaline Phosphatase (38-126) Units/L Troponin I (0-0.03) ng/mL Serum Total Protein (6.0-8.3) g/dL Albumin (3.5-5.0) g/dL Globulin (2.4-3.5) g/dL Albumin/Globulin Ratio (1.1-2.2) Urine Color [place] A (Yellow) Urine Clarity Clear (Clear) Urine pH 5.0 (5.0-8.0) pH Units Ur Specific [place] > 1.030 H (1.010-1.025) Urine Protein Negative (Neg-Trace) mg/dL Urine Glucose (UA) >=1000 H (Normal) mg/dL Urine Ketones 15 H (Negative) mg/dL Urine Blood Negative (Negative) Urine Nitrite Positive A (Negative) Urine Bilirubin Negative (Negative) Urine Urobilinogen Normal (Normal) mg/dL Ur Leukocyte Esterase Negative (Negative) Urine Microscopic RBC Test Not Performed Urine Microscopic WBC Test Not Performed Ur Squamous Epith Cells Few (None-Few) per lpf Urine Bacteria Test Not Performed Hyaline Casts Test Not Performed Ur Culture Indicated? YES A (NO)
[2017-06-02] MEDS ORDERED: Insulin Regular, Human 100 UNIT/ML IV PRN (07:52)
[2017-06-02 07:53] LABS: VBG HCO3 19.3 mEq/L (21-27); VBG PH 7.24 pH Units (7.32-7.42)
[2017-06-02] MEDS ORDERED: 0.9 % Sodium Chloride w KCl 20 MEQ/1,000 ML MLS IVC SCH (08:00)
[2017-06-02] MEDS ORDERED: *HR* Morphine 2 MG/ML SYRINGE IVP PRN (09:06)
[2017-06-02] MEDS ORDERED: Acetaminophen 325 MG TABLET PO PRN (09:06)
[2017-06-02] MEDS ORDERED: Ondansetron 4 MG/2 ML VIAL IVP PRN (09:06)
[2017-06-02] MEDS ORDERED: Naloxone 0.4 MG/ML INJ IVP PRN (09:06)
[2017-06-02 09:30] LABS: Calcium 11.7 mg/dL (8.6-10.8); Potassium 3.2 mEq/L (3.5-4.5)
[2017-06-02 10:05] LABS: Magnesium 2.3 mg/dL (1.6-2.6); Phosphorous 2.5 mg/dL (2.3-4.7)
--- NOTE | 2017-06-02 10:07 | Electrocardiograph Report ---
[place] [id number] Test Date: 2017-06-02 Pat Name: Park Brenner Department: 102 Room: 2N15 Gender: F [employer]: : 1955 Requested By: Etienne De La Fuente Order Number: [id number] Reading MD: Faustina Dang Measurements Intervals [place] Rate: 109 P: 81 MN: 108 QRS: 83 QRSD: 98 T: 55 QT: 343 QTc: 407 Interpretive Statements SINUS TACHYCARDIA WITH SHORT MN INTERVAL POSSIBLE LEFT ATRIAL ENLARGEMENT [-0.1mV P WAVE IN V1/V2] ABNORMAL RHYTHM ECG Electronically Signed On 06-02-2017 10:06:31 EDT by Faustina Dang
[2017-06-02] MEDS ORDERED: 0.9 % Sodium Chloride w KCl 40 MEQ/1,000 ML MLS IVC SCH (10:30)
[2017-06-02 12:36] LABS: Calcium 11.3 mg/dL (8.6-10.8); Potassium 3.7 mEq/L (3.5-4.5)
[2017-06-02] MEDS ORDERED: Potassium Chloride 20 MEQ in Ringers Solution, Lactated 1,000 ML IVC SCH ×2 (13:15→13:30)
--- NOTE | 2017-06-02 14:32 | Internal Med History&Physical ---
Date of Encounter: 06/02/17 Time of Encounter: 08:10 Assessment and Plan (1) DKA (diabetic ketoacidoses) Current visit: Yes Status: Acute Unclear etiology as patient is not a diabetic, could be related to underlying infection. Chest x-ray shows no evidence of infection but urinalysis is suggestive of UTI. Noted to have elevated random blood glucose with increased anion gap and low serum bicarbonate, venous blood gas not available. Check hemoglobin A1c. Will start IV insulin drip per protocol along with hourly Accu- Cheks and aggressive IV hydration. Monitor electrolytes closely and supplement potassium and magnesium. Monitor urine output and vitals closely. Keep nothing by mouth for now. Check BMP every 4 hours. High risk for complications. Qualifiers: Diabetes mellitus type: type 2 Diabetes mellitus complication detail: without coma Qualified Code(s): E13.10 - Other specified diabetes mellitus with ketoacidosis without coma (2) Alcoholic cirrhosis of liver Current visit: Yes Status: Chronic Patient is supposed to follow up with GI as outpatient. Has been discharged on a tapering course of steroids for alcoholic hepatitis during her previous admission. Reports alcohol abstinence at this time. Supportive care. Thiamine and folate supplements. Qualifiers: Ascites presence: without ascites Qualified Code(s): K70.30 - Alcoholic cirrhosis of liver without ascites (3) Alcoholism /alcohol abuse Current visit: Yes Status: Inactive Quit alcohol use per patient. Noted to be very cachectic and debilitated. Nutrition consult. Physical and occupational therapy evaluation. Patient will probably benefit from placement for rehabilitation. (4) Chronic pancreatitis Current visit: Yes Status: Chronic Qualifiers: Pancreatitis type: alcohol induced Qualified Code(s): K86.0 - Alcohol- induced chronic pancreatitis Internal Medicine - H&P: HPI Chief complaint: Generalized weakness, polyuria Admitted From: Emergency Dept Plans for Post Hospital Care: Transfer Jail Facility History of present illness: Ms. Brenner is a 61 year old female with history of chronic alcohol abuse was brought in by her boyfriend with complaints of worsening weakness, left more than right along with confusion, polyuria and polydipsia. She was admitted with similar complaints of worsening weakness about 3 months back and was diagnosed with alcoholic cirrhosis and hepatitis and was discharged on tapering course of steroids and electrolyte supplements. Patient currently reports that she has since quit drinking alcohol. She does have left-sided weakness, more significant in her left upper arm, at baseline. She has been feeling excessively weak over the last few days with worsening ataxia, generalized weakness, anorexia, 1 episode of emesis, urinary frequency with polyuria, polydipsia and extreme dehydration. She has no known history of diabetes and is not on any diabetic medications at home. Past Med Surg Social Fam HX - Past Medical History Medical history: coronary artery disease, CVA, hyperlipidemia, liver disease, TIA Psychiatric history: no psych history - Social History Smoking Status: Current every day smoker Smokeless Tobacco Status: No Alcohol use: none, heavy (Reports quitting alcohol since 3-4 months) Drug use: none Occupational status: disabled Current living situation: Home Activity Level: Uses cane/walker Recent Out of Country Travel Within the Last 8 Weeks: No - Family History Father Hx Family Endocrine Disorder: Yes (DM) Internal Medicine - H&P: Meds Atorvastatin Calcium [Lipitor] 20 mg PO DAILY 06/02/17 [History] Allergies No Known Allergies Allergy (Verified 01/16/17 17:07) All Systems PM: A 10-system review of systems was performed and is negative for pertinent findings except as documented above in the HPI. - Constitutional Constitutional: anorexia, lethargy, malaise, weakness - EENT Eyes: no change in vision, no discharge, no pain, no photophobia Ears: no ear discharge, no ear pain, no tinnitus Nose, mouth and throat: no dysphagia, no nasal discharge, no neck pain, no sore throat - Cardiovascular Cardiovascular ROS IM: no chest pain, no diaphoresis, no dyspnea, no lightheadedness, no palpitations, no syncope - Respiratory Respiratory: no cough, no dyspnea, no wheezing, no excessive phlegm production - Gastrointestinal Gastrointestinal: nausea, vomiting - Genitourinary Genitourinary: no change in urinary stream, no dysuria, no flank pain, no hematuria - Musculoskeletal Musculoskeletal ROS IM: no numbness, no tingling - Integumentary Integumentary IM: no rash, no unusual bruising - Neurological Neurological ROS: abnormal gait, confusion, frequent falls, weakness - Hematologic/Lymphatic Hematologic/Lymphatic: no easy bruising - Constitutional Vitals: Temp Pulse Resp BP Pulse Ox 98 F 106 16 112/70 97 06/02/17 11:39 06/02/17 11:39 06/02/17 11:39 06/02/17 11:39 06/02/17 11:39 General appearance: Present: cachectic, A&O X 3, answers questions appropriately (But reports that she cannot remember appropriately due to her medical condition) - ENT ENT exam: Present: mucous membranes dry, normal oropharynx (Poor dentition, poor personal hygiene) - Respiratory Respiratory exam: Present: CTAB. Absent: accessory muscle use, rales, rhonchi, wheezes - Cardiovascular Cardiovascular exam: Present: RRR, +S1, +S2. Absent: diastolic murmur, gallop, rubs, systolic murmur - GI/Abdominal GI/Abdominal exam: Present: normal bowel sounds, soft, no peritoneal signs. Absent: distended, tenderness - Extremities Exam Extremities exam: Present: full ROM, warm, radial pulses palpable and symetrical. Absent: calf tenderness, cyanotic, pedal edema - Neurological Exam Neurological exam: Present: CN II-XII intact, oriented X3, strengths equal and symetr throughout (4/5 motor power in all 4 extremities, left hand noted to be weak with poor compensation programs manager). Absent: pronater drift, facial droop, speech deficit - Skin Skin exam: Present: dry, intact Internal Med - H&P Results - Labs CBC & Chem 7: 06/02/17 04:52 06/02/17 12:08 Labs: BMP 06/02/17 06/02/17 06/02/17 08:23 09:30 12:08 Sodium 147 H 149 H Potassium 3.2 L D 3.7 Chloride 108 113 H Carbon Dioxide 18 L 24 BUN 51 H 54 H Creatinine 1.91 H 1.66 H Glucose 921 H* 836 H* 665 H* Calcium 11.7 H 11.3 H - ABG Interpretation ABG results: 06/02/17 07:02 VBG pH 7.24 L VBG pCO2 45 VBG pO2 21 L VBG HCO3 19.3 L - EKG Data -: EKG Interpreted by Myself EKG shows normal: sinus rhythm Rate: tachycardia
[2017-06-02 15:36] LABS: Estimated Average Glucose > 355 mg/dl; Hemoglobin A1C >= 14.1 %
[2017-06-02 17:35] LABS: Potassium 4.6 mEq/L (3.5-4.5)
[2017-06-02] MEDS: *HR* Heparin 5,000 UNIT/ML VIAL SQ SCH (17:41)
[2017-06-02 22:17] LABS: VBG HCO3 27.9 mEq/L (21-27); VBG PH 7.4 pH Units (7.32-7.42)
[2017-06-02 22:31] LABS: BUN/Creatinine Ratio 49 (6-26); Blood Urea Nitrogen 55 mg/dL (7-20); Calcium 10.4 mg/dL (8.6-10.8); Carbon Dioxide 23 mEq/L (19-29); Chloride 123 mEq/L (98-109); Glucose 169 mg/dL (70-99); Osmolality,Calculated 339 (280-300); Potassium 4.3 mEq/L (3.5-4.5); Sodium 155 mEq/L (136-145); eGFR For African Americans > 60 (> 60); eGFR For Non-African Americans 50 (> 60)
[2017-06-02] MEDS ORDERED: Dextrose Gel 15 GM PO PRN ×2 (23:44)
[2017-06-02] MEDS ORDERED: D5% in Water 1,000 ML IVC PRN (23:44)
[2017-06-02] MEDS ORDERED: Insulin DETEMIR 100 UNIT/ML X5UNITS SQ SCH (23:45)
[2017-06-03] MEDS: Insulin LISPRO 300 UNITS/3 ML VIAL SQ SCH ×5 (00:25→20:02)
[2017-06-03 06:31] LABS: Hematocrit 39.2 % (35.3-44.9); Hemoglobin 12.8 g/dL (11.5-15.4); Mean Corpuscular HGB Conc 32.7 g/dL (31.6-35.5); Mean Corpuscular Hemoglobin 30.9 pg (28.0-33.3); Mean Corpuscular Volume 94.7 fL (83.0-100.0); Mean Platelet Volume 11.7 fL (9.4-12.4); Platelet Count 295 K/mcL (140-400); Red Blood Count 4.14 M/mcL (3.82-4.97); Red Cell Distribution Width 12.8 % (11.5-14.5)
[2017-06-03 06:34] LABS: BUN/Creatinine Ratio 54 (6-26); Blood Urea Nitrogen 50 mg/dL (7-20); Carbon Dioxide 24 mEq/L (19-29); Chloride 114 mEq/L (98-109); Glucose 279 mg/dL (70-99); Magnesium 1.8 mg/dL (1.6-2.6); Osmolality,Calculated 321 (280-300); Phosphorous 2.2 mg/dL (2.3-4.7); Potassium 4.2 mEq/L (3.5-4.5); eGFR For African Americans > 60 (> 60); eGFR For Non-African Americans > 60 (> 60)
[2017-06-03 06:37] LABS: Sodium 144 mEq/L (136-145)
[2017-06-03] MEDS: *HR* Heparin 5,000 UNIT/ML VIAL SQ SCH ×2 (06:55→17:33)
[2017-06-03 07:50] LABS: Lymphocytes # 3.5 K/mcL (0.6-4.6); Neutrophils # 25.5 K/mcL (1.6-8.9); Platelet Estimate Normal (Normal)
[2017-06-03] MEDS: Pantoprazole 40 MG VIAL IVP SCH (08:27)
[2017-06-03] MEDS ORDERED: *HR* LORazepam 2 MG/ML VIAL IVP PRN (09:14)
--- NOTE | 2017-06-03 09:20 | Internal Med Progress Note ---
Date of Encounter: 06/03/17 Time of Encounter: 09:18 - Assessment and plan (1) DKA (diabetic ketoacidoses) Current Visit: Yes Status: Acute Assessment and plan: secondary to non-compliance. no signs of infection. urine culture was negative. cxr negative. no skin infection. stop iv ceftriaxone. continue iv fluids. levemir. iss. diabetic diet. Qualifiers: Diabetes mellitus type: type 2 Diabetes mellitus complication detail: without coma Qualified Code(s): E13.10 - Other specified diabetes mellitus with ketoacidosis without coma (2) Alcohol abuse Current Visit: No Status: Acute Assessment and plan: ativan prn. per patient last drink was 6 months ago (3) Alcoholic cirrhosis of liver Current Visit: Yes Status: Chronic Qualifiers: Ascites presence: without ascites Qualified Code(s): K70.30 - Alcoholic cirrhosis of liver without ascites (4) Chronic pancreatitis Current Visit: Yes Status: Chronic Assessment and plan: stable Qualifiers: Pancreatitis type: alcohol induced Qualified Code(s): K86.0 - Alcohol- induced chronic pancreatitis (5) CVA, old, hemiparesis Current Visit: No Status: Chronic Assessment and plan: pt/ot. rehab (6) Severe protein-calorie malnutrition Current Visit: Yes Status: Acute Assessment and plan: very cachextic in appearance with significant temporal wasting and muscle wasting, unintentional weight loss with BMI of 14.1. nutrition services involved. PT/OT/secondary social studies teacher consult - Subjective Interval history: patient reports feeling sick, she ate some of her breakfast ~30%. mild nausea. - Constitutional Vitals: Temp Pulse Resp BP Pulse Ox 97.2 F L 74 17 139/73 99 06/03/17 08:01 06/03/17 08:01 06/03/17 08:01 06/03/17 08:01 06/03/17 08:01 General appearance: Present: cachectic, cooperative, A&O X 3, pleasant, no acute distress, answers questions appropriately (But reports that she cannot remember appropriately due to her medical condition) - Neck Neck exam general surgery: Present: supple, trachea midline. Absent: lymphadenopathy - Respiratory Respiratory exam: Present: CTAB - Cardiovascular Cardiovascular exam: Present: RRR - GI/Abdominal GI/Abdominal exam: Present: normal bowel sounds, soft. Absent: distended, tenderness - Extremities Exam Extremities exam: Absent: pedal edema - Back Exam Back exam: Absent: CVA tenderness (L), CVA tenderness (R) - Neurological Exam Neurological exam: Present: alert, oriented X3, no focal deficits, strengths equal and symetr throughout. Absent: facial droop, speech deficit - Skin Skin exam: Absent: rash Internal Medicine: Result - Labs CBC & Chem 7: 06/03/17 12:35 06/03/17 05:35 Labs: Short CBC 06/03/17 Range/Units 05:35 WBC 29.0 H D (4.3-11.1) K/mcL Hgb 12.8 (11.5-15.4) g/dL Hct 39.2 (35.3-44.9) % Plt Count 295 (140-400) K/mcL Neutrophils # 25.5 H (1.6-8.9) K/mcL BMP 06/02/17 06/02/17 06/02/17 09:30 12:08 17:14 Sodium 149 H 152 H Potassium 3.7 4.6 H Chloride 113 H 121 H Carbon Dioxide 24 23 BUN 54 H 56 H Creatinine 1.66 H 1.33 H Glucose 836 H* 665 H* 446 H Calcium 11.3 H 11.0 H 06/02/17 06/03/17 22:08 05:35 Sodium 155 H 144 D Potassium 4.3 4.2 Chloride 123 H 114 H Carbon Dioxide 23 24 BUN 55 H 50 H Creatinine 1.12 H 0.92 Glucose 169 H 279 H Calcium 10.4 10.0 - ABG Interpretation ABG results: PT/INR, D-dimer PT 9.7 Seconds (9.4-12.1) 06/02/17 04:52 Consult Discharge Plan - Plan Referrals: Jovita Meadows DO [Primary Care Provider] - 06/11/17 10:15 am (your appointment for 06-21-17 @ 1640 has been cancelled.)
[2017-06-03] MEDS: Insulin DETEMIR 100 UNIT/ML X5UNITS SQ SCH (09:42)
[2017-06-03] MEDS ORDERED: Insulin DETEMIR 100 UNIT/ML X5UNITS SQ STA (12:00)
[2017-06-03] MEDS ORDERED: Insulin Human Regular 10 UNIT in 0.9 % Sodium Chloride 10 ML IV STA (12:01)
[2017-06-03 13:10] LABS: Basophils % 0.2 %; Immature Granulocytes % 0.6 % (0-4); Lymphocytes % 13.6 %; Red Cell Distribution Width 12.8 % (11.5-14.5)
[2017-06-03 13:11] LABS: Basophils # 0.1 K/mcL (0.0-0.2); Eosinophils # 0.1 K/mcL (0.0-0.6); Eosinophils % 0.2 %; Hematocrit 33.9 % (35.3-44.9); Hemoglobin 11.3 g/dL (11.5-15.4); Lymphocytes # 3.8 K/mcL (0.6-4.6); Mean Corpuscular HGB Conc 33.3 g/dL (31.6-35.5); Mean Corpuscular Hemoglobin 31.9 pg (28.0-33.3); Mean Corpuscular Volume 95.8 fL (83.0-100.0); Monocytes # 0.6 K/mcL (0.0-1.3); Monocytes % 2.1 %; Neutrophils # 23.1 K/mcL (1.6-8.9); Platelet Count 262 K/mcL (140-400); Red Blood Count 3.54 M/mcL (3.82-4.97); Segmented Neutrophils % 83.3 %
[2017-06-03 13:38] LABS: Platelet Estimate Normal (Normal)
[2017-06-03] MEDS: Ipratropium/Albuterol Neb 3 ML IH SCH ×2 (15:41→22:38)
[2017-06-03] MEDS: Thiamine (B-1) 100 MG, Folic Acid 1 MG, MVI, adult with vitamin K 10 ML in 0.9 % Sodi... IVPB SCH (17:34)
--- NOTE | 2017-06-04 02:26 | Event Note ---
Date of Encounter: 06/04/17 Time of Encounter: 02:24 RN reported to me that patient stated she would "kill herself" if she did not receive a sleeping pill. I ordered suicide precautions and 24 hour sitter until patient could be evaluated from a psychiatric standpoint.
[2017-06-04 04:42] LABS: Basophils % 0.1 %; Eosinophils # 0.2 K/mcL (0.0-0.6); Eosinophils % 0.8 %; Hematocrit 33.8 % (35.3-44.9); Immature Granulocytes % 0.4 % (0-4); Lymphocytes # 4.9 K/mcL (0.6-4.6); Lymphocytes % 24.3 %; Mean Corpuscular HGB Conc 32.5 g/dL (31.6-35.5); Mean Corpuscular Hemoglobin 30.8 pg (28.0-33.3); Mean Corpuscular Volume 94.7 fL (83.0-100.0); Mean Platelet Volume 11.6 fL (9.4-12.4); Monocytes # 0.5 K/mcL (0.0-1.3); Monocytes % 2.5 %; Neutrophils # 14.5 K/mcL (1.6-8.9); Nucleated Red Blood Cells 0.1 /100 WBC (0); Platelet Count 230 K/mcL (140-400); Red Blood Count 3.57 M/mcL (3.82-4.97); Red Cell Distribution Width 12.4 % (11.5-14.5); Segmented Neutrophils % 71.9 %
[2017-06-04 04:56] LABS: Alanine Aminotransferase 22 Units/L (0-55); Alkaline Phosphatase 57 Units/L (38-126); Aspartate Amino Transferase 32 Units/L (5-34); BUN/Creatinine Ratio 38 (6-26); Bilirubin,Total 0.5 mg/dL (0.2-1.2); Calcium 8.7 mg/dL (8.6-10.8); Carbon Dioxide 24 mEq/L (19-29); Chloride 107 mEq/L (98-109); Globulin 2.6 g/dL (2.4-3.5); Glucose 110 mg/dL (70-99); Magnesium 1.3 mg/dL (1.6-2.6); Osmolality,Calculated 287 (280-300); Phosphorous 2.4 mg/dL (2.3-4.7); Potassium 3.7 mEq/L (3.5-4.5); eGFR For African Americans > 60 (> 60); eGFR For Non-African Americans > 60 (> 60)
[2017-06-04 04:58] LABS: Albumin 2.7 g/dL (3.5-5.0); Blood Urea Nitrogen 24 mg/dL (7-20); Sodium 136 mEq/L (136-145); Total Protein 5.3 g/dL (6.0-8.3)
[2017-06-04] MEDS: *HR* Heparin 5,000 UNIT/ML VIAL SQ SCH ×2 (05:14→17:41)
[2017-06-04] MEDS: Ipratropium/Albuterol Neb 3 ML IH SCH ×3 (07:56→21:40)
[2017-06-04] MEDS: Insulin LISPRO 300 UNITS/3 ML VIAL SQ SCH ×4 (08:09→21:09)
[2017-06-04] MEDS: Pantoprazole 40 MG VIAL IVP SCH (08:09)
[2017-06-04] MEDS: Insulin DETEMIR 100 UNIT/ML X5UNITS SQ SCH (08:25)
[2017-06-04] MEDS ORDERED: Magnesium Sulfate 1 GM in D5% in Water 100 ML IVPB ONE (13:16)
[2017-06-04] MEDS: Magnesium Oxide 400 MG TABLET PO SCH (13:25)
--- NOTE | 2017-06-04 16:29 | Internal Med Progress Note ---
<Veronica Galeano - Last Filed: 06/04/17 17:21> Date of Encounter: 06/04/17 Time of Encounter: 09:00 - Assessment and plan (1) DKA (diabetic ketoacidoses) Current Visit: Yes Status: Acute Assessment and plan: Secondary to non-compliance- she was diagnosed with diabetes in January. stable WBC 20.2 improving, glucose 110 No signs of infection. urine culture was negative. Chest x-ray negative Levemir LSS. diabetic diet. Qualifiers: Diabetes mellitus type: type 2 Diabetes mellitus complication detail: without coma Qualified Code(s): E13.10 - Other specified diabetes mellitus with ketoacidosis without coma (2) Alcoholic cirrhosis of liver Current Visit: Yes Status: Chronic Assessment and plan: She quit drinking. F/U GI outpatient Qualifiers: Ascites presence: without ascites Qualified Code(s): K70.30 - Alcoholic cirrhosis of liver without ascites (3) Alcoholism /alcohol abuse Current Visit: Yes Status: Inactive Assessment and plan: She is catchetic and has muscle wasting. Ordered thiamine and folate supplements PT/ OT consulted (4) Chronic pancreatitis Current Visit: Yes Status: Chronic Assessment and plan: stable Qualifiers: Pancreatitis type: alcohol induced Qualified Code(s): K86.0 - Alcohol- induced chronic pancreatitis - Subjective Interval history: patient was sitting up in bed comfortably eating lunch She stated that last night she was "bad" she threatened to kill herself if not given ativan She has no complaints at this time She stated she does not want to kill herself or others yet - Constitutional Vitals: Temp Pulse Resp BP Pulse Ox 98.8 F 72 16 188/55 98 06/04/17 15:43 06/04/17 15:43 06/04/17 15:59 06/04/17 15:43 06/04/17 15:59 General appearance: Present: cachectic, cooperative, A&O X 3, pleasant, no acute distress, answers questions appropriately (But reports that she cannot remember appropriately due to her medical condition) - Head Head exam: Present: atraumatic (temporal wasting) - Eye Eye exam: Present: conjuntiva pink. Absent: scleral icterus - Neck Neck exam general surgery: Present: supple, trachea midline - Respiratory Additional comments: patient would not let me listen to her lungs today - Cardiovascular Cardiovascular exam: Present: RRR, +S1, +S2. Absent: clicks - GI/Abdominal GI/Abdominal exam: Present: normal bowel sounds, soft. Absent: distended, guarding, tenderness - Extremities Exam Extremities exam: Absent: mottling, pedal edema - Back Exam Back exam: Absent: normal inspection (very little subcutaneous fat), tenderness - Skin Skin exam: Present: dry, intact Internal Medicine: Result - Labs CBC & Chem 7: 06/04/17 03:56 06/04/17 03:56 Labs: Short CBC 06/04/17 Range/Units 03:56 WBC 20.2 H (4.3-11.1) K/mcL Hgb 11.0 L (11.5-15.4) g/dL Hct 33.8 L (35.3-44.9) % Plt Count 230 (140-400) K/mcL Neutrophils # 14.5 H (1.6-8.9) K/mcL BMP 06/04/17 03:56 Sodium 136 D Potassium 3.7 Chloride 107 Carbon Dioxide 24 BUN 24 H D Creatinine 0.63 Glucose 110 H Calcium 8.7 Liver Function 06/04/17 Range/Units 03:56 Total Bilirubin 0.5 (0.2-1.2) mg/dL AST 32 (5-34) Units/L ALT 22 (0-55) Units/L Alkaline Phosphatase 57 (38-126) Units/L Albumin 2.7 L D (3.5-5.0) g/dL - ABG Interpretation ABG results: PT/INR, D-dimer PT 9.7 Seconds (9.4-12.1) 06/02/17 04:52 Consult Discharge Plan - Plan Referrals: Jovita Meadows DO [Primary Care Provider] - 06/11/17 10:15 am (your appointment for 06-21-17 @ 1640 has been cancelled.) <Vineet Tong - Last Filed: 06/04/17 19:01> Date of Encounter: 06/04/17 - Assessment and plan (1) Suicidal ideation Current Visit: Yes Status: Acute Assessment and plan: Psych eval. Sitter. (2) DKA (diabetic ketoacidoses) Current Visit: Yes Status: Resolved Qualifiers: Diabetes mellitus type: due to underlying condition Diabetes mellitus complication detail: without coma Qualified Code(s): E08.10 - Diabetes mellitus due to underlying condition with ketoacidosis without coma (3) Chronic pancreatitis Current Visit: Yes Status: Chronic Qualifiers: Pancreatitis type: alcohol induced Qualified Code(s): K86.0 - Alcohol- induced chronic pancreatitis (4) Diabetes Current Visit: Yes Status: Acute Qualifiers: Diabetes mellitus type: due to underlying condition Diabetes mellitus complication status: with hyperglycemia Diabetes mellitus technician terminal and repeater insulin use: without fci use Qualified Code(s): E08.65 - Diabetes mellitus due to underlying condition with hyperglycemia (5) Alcoholic cirrhosis of liver Current Visit: Yes Status: Chronic Qualifiers: Ascites presence: without ascites Qualified Code(s): K70.30 - Alcoholic cirrhosis of liver without ascites (6) Severe protein-calorie malnutrition Current Visit: Yes Status: Acute (7) Alcoholism /alcohol abuse Current Visit: Yes Status: Inactive (8) Nicotine dependence Current Visit: No Status: Acute Qualifiers: Nicotine product type: cigarettes Substance use status: unspecified nicotine-induced disorder Qualified Code(s): F17.219 - Nicotine dependence, cigarettes, with unspecified nicotine-induced disorders - Constitutional Vitals: Temp Pulse Resp BP Pulse Ox 98.1 F 78 17 115/56 98 06/04/17 18:52 06/04/17 18:52 06/04/17 18:52 06/04/17 18:52 06/04/17 18:52 Internal Medicine: Result - Labs CBC & Chem 7: 06/04/17 03:56 06/04/17 03:56 Labs: Short CBC 06/04/17 Range/Units 03:56 WBC 20.2 H (4.3-11.1) K/mcL Hgb 11.0 L (11.5-15.4) g/dL Hct 33.8 L (35.3-44.9) % Plt Count 230 (140-400) K/mcL Neutrophils # 14.5 H (1.6-8.9) K/mcL BMP 06/04/17 03:56 Sodium 136 D Potassium 3.7 Chloride 107 Carbon Dioxide 24 BUN 24 H D Creatinine 0.63 Glucose 110 H Calcium 8.7 Liver Function 06/04/17 Range/Units 03:56 Total Bilirubin 0.5 (0.2-1.2) mg/dL AST 32 (5-34) Units/L ALT 22 (0-55) Units/L Alkaline Phosphatase 57 (38-126) Units/L Albumin 2.7 L D (3.5-5.0) g/dL - ABG Interpretation ABG results: PT/INR, D-dimer PT 9.7 Seconds (9.4-12.1) 06/02/17 04:52 - Attending Attestation I examined this patient and my medical decision-making was reviewed with the Resident Physician on 06/04/17. I agree with the documented findings, disposition and treatment plan as described except to the extent set forth below. Ms. Brenner is currently admitted for acute DKA. She remains high risk due to potential for worsening diabetic status and issues with suicidal ideation. Ms. Brenner denies complaint at this time. She now has a sitter due to statements made last evening. No fever or chills. No GI issues. Very difficult to get any information from her as she is very evasive at this time. Exam Alert. Comfortable Mucus membranes dry Heart reg - not agreeable to full exam No edema I/P 1. DKA - resolved 2. Suicidal ideation - sitter, psych eval., 3. Chronic ETOH abuse 4. Chronic pancreatitis - stable at this time. Further diagnoses and plan as above Working on discharge planning to SNF. Need psych clearance.
[2017-06-04] MEDS: Thiamine (B-1) 100 MG, Folic Acid 1 MG, MVI, adult with vitamin K 10 ML in 0.9 % Sodi... IVPB SCH (17:41)
[2017-06-05] MEDS: *HR* Heparin 5,000 UNIT/ML VIAL SQ SCH ×2 (05:39→17:56)
[2017-06-05 06:32] LABS: Basophils % 0.2 %; Eosinophils # 0.1 K/mcL (0.0-0.6); Eosinophils % 1.2 %; Hematocrit 31.4 % (35.3-44.9); Hemoglobin 10.3 g/dL (11.5-15.4); Immature Granulocytes % 0.5 % (0-4); Lymphocytes # 2.9 K/mcL (0.6-4.6); Lymphocytes % 33.3 %; Mean Corpuscular HGB Conc 32.8 g/dL (31.6-35.5); Mean Corpuscular Volume 94.6 fL (83.0-100.0); Mean Platelet Volume 11.3 fL (9.4-12.4); Monocytes # 0.3 K/mcL (0.0-1.3); Monocytes % 3.6 %; Neutrophils # 5.3 K/mcL (1.6-8.9); Platelet Count 196 K/mcL (140-400); Red Blood Count 3.32 M/mcL (3.82-4.97); Red Cell Distribution Width 12.2 % (11.5-14.5); Segmented Neutrophils % 61.2 %
[2017-06-05] MEDS: Magnesium Oxide 400 MG TABLET PO SCH (07:54)
[2017-06-05] MEDS: Pantoprazole 40 MG VIAL IVP SCH (07:55)
[2017-06-05] MEDS: Insulin LISPRO 300 UNITS/3 ML VIAL SQ SCH ×4 (07:58→21:05)
[2017-06-05] MEDS: Insulin DETEMIR 100 UNIT/ML X5UNITS SQ SCH (08:04)
[2017-06-05 08:15] LABS: BUN/Creatinine Ratio 23 (6-26); Blood Urea Nitrogen 16 mg/dL (7-20); Calcium 8.7 mg/dL (8.6-10.8); Carbon Dioxide 23 mEq/L (19-29); Chloride 106 mEq/L (98-109); Glucose 313 mg/dL (70-99); Osmolality,Calculated 291 (280-300); Potassium 4.2 mEq/L (3.5-4.5); Sodium 134 mEq/L (136-145); eGFR For African Americans > 60 (> 60); eGFR For Non-African Americans > 60 (> 60)
[2017-06-05] MEDS: Ipratropium/Albuterol Neb 3 ML IH SCH ×3 (09:10→23:27)
--- NOTE | 2017-06-05 12:22 | Consult Note ---
Date of Encounter: 06/05/17 Time of Encounter: 12:17 Assessment & Recommendation (1) Suicidal ideation Current visit: Yes Status: Acute Assessment & Recommendation: No SI on exam today. Denies ideation, intent, or plan. Looking forward to rehab. Wants someone to talk to. Recommend counseling at rehab facility. Recommend proceeding with plan to discharge to rehab. History of Present Illness Requesting Physician: Vineet Tong DO Reason for consult: suicidal ideation History of present illness: Ms. Brenner is a 61 year old female who was admitted secondary to DKA, chronic pancreatitis, and weakness. Psychiatry was consulted after she made a comment of wanting to kill herself. On exam client is friendly and eager to talk. She reports feeling lonely and isolated from family and friends. She is also frustrated with being bedridden and she has been having trouble sleeping. She reports she lashed out and made a comment about wanting to kill herself out of anger over her situation. Denies it was true. Denies any mental health history. No suicide attempts or past hospitalizations. Reports she occasionally feels depressed but has never been treated. Thinks she would just like having someone to talk to. Excited to go to rehab. Hoping she might make friends there. Future oriented. Discussed counseling and she is amenable this. No evidence of psychosis on exam. Denies SI/HI. CC: Vineet Tong DO Past Med Surg Social Fam HX - Past Medical History Medical history: coronary artery disease, CVA, hyperlipidemia, liver disease, TIA - Past Psychiatric History Psychiatric history: Reports: no psych history Family psychiatric history: Unknown Family History of Suicide: Unknown - Social History Smoking Status: Current every day smoker Smokeless Tobacco Status: No Alcohol use: none, heavy (Reports quitting alcohol since 3-4 months) Drug use: none - Family History Father Hx Family Endocrine Disorder: Yes (DM) Medications & Allergies Atorvastatin Calcium [Lipitor] 20 mg PO DAILY 06/02/17 [History] Allergies No Known Allergies Allergy (Verified 01/16/17 17:07) Review of Systems Constitutional: Reports: weakness, weight change Eyes: Denies: eye pain, vision change Ears, Nose, Throat: Denies: ear pain, throat pain, dental pain, hearing loss, congestion Cardiovascular: Denies: chest pain, palpitations, dyspnea on exertion Respiratory: Denies: cough, dyspnea, wheezes Gastrointestinal: Reports: abdominal pain Genitourinary male: Denies: urgency, dysuria, frequency, genital lesions Genitourinary female: Denies: urgency, dysuria, frequency, abnormal menses, dyspareunia Musculoskeletal: Reports: myalgia Integumentary: Reports: other Neurological: Reports: weakness Endocrine: Reports: fatigue Hematologic/Lymphatic: Denies: easy bruising, lymphadenopathy Allergic/Immunologic: Denies: urticaria, itchy eyes Mental Status Exam Patient orientation: Yes Person, Yes Time, Yes Place Level of alertness: Alert Patient appearance: Appropriate Behavior: calm, cooperative Psychomotor activity: Normal Eye contact: Maintains Eye Contact Mood description: Depressed Affect description: congruent with mood, full range Speech pattern: Normal rate, Normal rhythm, Normal tone Speech volume: Normal Thought process: Linear, Goal Oriented Thought content: No Suicidal ideation, No Homicidal ideation, No Overt delusions Perceptual disturbances: No Auditory hallucinations, No Visual hallucinations Attention span: Capable of Focused Attention Memory description: Grossly Intact Patient reliability: Reliable Historian Intelligence estimate: Average Judgment: Limited Insight: Partial Results - Vital Signs Vital signs: Temp Pulse Resp BP Pulse Ox 98.3 F 83 16 104/43 98 06/05/17 11:28 06/05/17 11:28 06/05/17 11:28 06/05/17 11:28 06/05/17 11:28 - Labs Labs: Laboratory Last Values WBC 8.7 K/mcL (4.3-11.1) D 06/05/17 06:14 RBC 3.32 M/mcL (3.82-4.97) L 06/05/17 06:14 Hgb 10.3 g/dL (11.5-15.4) L 06/05/17 06:14 Hct 31.4 % (35.3-44.9) L 06/05/17 06:14 MCV 94.6 fL (83.0-100.0) 06/05/17 06:14 MCH 31.0 pg (28.0-33.3) 06/05/17 06:14 MCHC 32.8 g/dL (31.6-35.5) 06/05/17 06:14 RDW 12.2 % (11.5-14.5) 06/05/17 06:14 Plt Count 196 K/mcL (140-400) 06/05/17 06:14 MPV 11.3 fL (9.4-12.4) 06/05/17 06:14 Immature Gran % 0.5 % (0-4) 06/05/17 06:14 Seg Neutrophils % 61.2 % 06/05/17 06:14 Band Neutrophils % 14.0 % (0-4) H 06/03/17 05:35 Lymphocytes % 33.3 % 06/05/17 06:14 Monocytes % 3.6 % 06/05/17 06:14 Eosinophils % 1.2 % 06/05/17 06:14 Basophils % 0.2 % 06/05/17 06:14 Neutrophils # 5.3 K/mcL (1.6-8.9) 06/05/17 06:14 Lymphocytes # 2.9 K/mcL (0.6-4.6) 06/05/17 06:14 Monocytes # 0.3 K/mcL (0.0-1.3) 06/05/17 06:14 Eosinophils # 0.1 K/mcL (0.0-0.6) 06/05/17 06:14 Basophils # 0.0 K/mcL (0.0-0.2) 06/05/17 06:14 Nucleated RBCs/100 WBC 0.1 /100 WBC (0) H 06/04/17 03:56 Platelet Estimate Normal (Normal) 06/03/17 12:35 PT 9.7 Seconds (9.4-12.1) 06/02/17 04:52 INR 0.9 06/02/17 04:52 APTT 25.0 Seconds (26.0-36.0) L 06/02/17 04:52 VBG pH 7.40 pH Units (7.32-7.42) 06/02/17 22:08 VBG pCO2 45 mmHg (41-51) 06/02/17 22:08 VBG pO2 84 mmHg (25-40) H 06/02/17 22:08 VBG HCO3 27.9 mEq/L (21-27) H 06/02/17 22:08 Sodium 134 mEq/L (136-145) L 06/05/17 06:14 Potassium 4.2 mEq/L (3.5-4.5) 06/05/17 06:14 Chloride 106 mEq/L (98-109) 06/05/17 06:14 Carbon Dioxide 23 mEq/L (19-29) 06/05/17 06:14 BUN 16 mg/dL (7-20) 06/05/17 06:14 Creatinine 0.71 mg/dL (0.57-1.11) 06/05/17 06:14 Est GFR ( Amer) > 60 (> 60) 06/05/17 06:14 Est GFR (Non-Af Amer) > 60 (> 60) 06/05/17 06:14 BUN/Creatinine Ratio 23 (6-26) 06/05/17 06:14 Glucose 313 mg/dL (70-99) H 06/05/17 06:14 POC Glucose 446 (58-89) H* 06/05/17 11:38 Est Mean Plasma Glucose > 355 mg/dl 06/02/17 14:59 Hemoglobin A1c >= 14.1 % (-5.6) H 06/02/17 14:59 Calculated Osmolality 291 (280-300) 06/05/17 06:14 Calcium 8.7 mg/dL (8.6-10.8) 06/05/17 06:14 Phosphorus 2.4 mg/dL (2.3-4.7) 06/04/17 03:56 Magnesium 1.3 mg/dL (1.6-2.6) L 06/04/17 03:56 Total Bilirubin 0.5 mg/dL (0.2-1.2) 06/04/17 03:56 AST 32 Units/L (5-34) 06/04/17 03:56 ALT 22 Units/L (0-55) 06/04/17 03:56 Alkaline Phosphatase 57 Units/L (38-126) 06/04/17 03:56 Ammonia 32 mcmol/L (18-72) 06/02/17 07:02 Troponin I 0.01 ng/mL (0-0.03) 06/02/17 04:52 Serum Total Protein 5.3 g/dL (6.0-8.3) L D 06/04/17 03:56 Albumin 2.7 g/dL (3.5-5.0) L D 06/04/17 03:56 Globulin 2.6 g/dL (2.4-3.5) 06/04/17 03:56 Albumin/Globulin Ratio 1.0 (1.1-2.2) L 06/04/17 03:56 Beta-Hydroxybutyric Acd > 2.00 mmol/L (0.02-0.27) H 06/02/17 04:52 TSH 0.540 mcIU/mL (0.350-4.840) 06/02/17 04:52 Urine Color [place] (Yellow) A 06/02/17 05:02 Urine Clarity Clear (Clear) 06/02/17 05:02 Urine pH 5.0 pH Units (5.0-8.0) 06/02/17 05:02 Ur Specific [place] > 1.030 (1.010-1.025) H 06/02/17 05:02 Urine Protein Negative mg/dL (Neg-Trace) 06/02/17 05:02 Urine Glucose (UA) >=1000 mg/dL (Normal) H 06/02/17 05:02 Urine Ketones 15 mg/dL (Negative) H 06/02/17 05:02 Urine Blood Negative (Negative) 06/02/17 05:02 Urine Nitrite Positive (Negative) A 06/02/17 05:02 Urine Bilirubin Negative (Negative) 06/02/17 05:02 Urine Urobilinogen Normal mg/dL (Normal) 06/02/17 05:02 Ur Leukocyte Esterase Negative (Negative) 06/02/17 05:02 Urine Microscopic RBC Test Not Performed 06/02/17 05:02 Urine Microscopic WBC Test Not Performed 06/02/17 05:02 Ur Squamous Epith Cells Few per lpf (None-Few) 06/02/17 05:02 Urine Bacteria Test Not Performed 06/02/17 05:02 Hyaline Casts Test Not Performed 06/02/17 05:02 Ur Culture Indicated? YES (NO) A 06/02/17 05:02 Consult Discharge Plan - Plan Referrals: Jovita Meadows DO [Primary Care Provider] - 06/11/17 10:15 am (your appointment for 06-21-17 @ 1640 has been cancelled.)
--- NOTE | 2017-06-05 14:02 | Internal Med Progress Note ---
<Uli Durán - Last Filed: 06/05/17 15:00> Date of Encounter: 06/05/17 Time of Encounter: 11:30 - Assessment and plan (1) Suicidal ideation Current Visit: Yes Status: Acute Assessment and plan: Patient had evaluation by psychiatry today. Who felt that she is not currently at risk for potential self-harm, but would like someone to talk to. Appreciate psychiatry recommendations counseling at rehab facility Stable, will d/c sitter and plan for discharge tomorrow (2) DKA (diabetic ketoacidoses) Current Visit: Yes Status: Resolved Assessment and plan: Patient DKA likely secondary to non-compliance with recent diagnosis of diabetes Patient continuing to have elevated blood sugars. DKA resolved. No signs of infection. urine culture was negative. Chest x-ray negative Will increase her Levemir to 10 units HS Will change her sliding scale to high dose Qualifiers: Diabetes mellitus type: due to underlying condition Diabetes mellitus complication detail: without coma Qualified Code(s): E08.10 - Diabetes mellitus due to underlying condition with ketoacidosis without coma (3) Alcoholic cirrhosis of liver Current Visit: Yes Status: Chronic Assessment and plan: Patient reports cessation of etoh usage F/U GI outpatient Qualifiers: Ascites presence: without ascites Qualified Code(s): K70.30 - Alcoholic cirrhosis of liver without ascites (4) Debilitated patient Current Visit: No Status: Acute Assessment and plan: History of multiple CVAs wi residual weakness , etoh cirrhosis, and severe malnutrition. Recommended for SNF/ECF placement for rehab at discharge (5) Chronic pancreatitis Current Visit: Yes Status: Chronic Assessment and plan: Stable No concerns at this time Qualifiers: Pancreatitis type: alcohol induced Qualified Code(s): K86.0 - Alcohol- induced chronic pancreatitis (6) CVA, old, hemiparesis Current Visit: No Status: Chronic Assessment and plan: Patient reports continued weakness due to prior CVAs. PT/OT consulted Patient is recommended to need SNF/ECF placement at discharge (7) DVT prophylaxis Current Visit: No Status: Acute Assessment and plan: Heparin SQ BID - Subjective Interval history: Patient appears to be doing well today. She is calm, but appears to have a flat affect. She reports no concerns/complaints today. - Constitutional Vitals: Temp Pulse Resp BP Pulse Ox 98.3 F 83 16 104/43 98 06/05/17 11:28 06/05/17 11:28 06/05/17 11:28 06/05/17 11:28 06/05/17 11:28 General appearance: Present: cachectic, cooperative, A&O X 3, pleasant, no acute distress, answers questions appropriately Exam: General: Cooperative, no acute distress, alert and oriented 3, answers questions appropriately, flat affect HEENT: Normocephalic, atraumatic, Conjunctiva pink, sclera anicteric Respiratory: No accessory muscle usage, clear to auscultation bilaterally, no wheezes/rhonchi/rales appreciated Cardiovascular: Regular rate and rhythm, S1 and S2 present, no murmurs/rubs/ gallops/clicks appreciated GI/abdominal: Nondistended, nontender, soft, normal bowel sounds, no peritoneal signs Extremities: No calf tenderness, noncyanotic, no pedal edema appreciated, warm, lower extremity pulses palpable and symmetrical Neurological: Alert and oriented 3, no facial droop, no focal deficits Skin: Dry, intact, normal color Internal Medicine: Result - Labs CBC & Chem 7: 06/05/17 06:14 06/05/17 06:14 Labs: Short CBC 06/05/17 Range/Units 06:14 WBC 8.7 D (4.3-11.1) K/mcL Hgb 10.3 L (11.5-15.4) g/dL Hct 31.4 L (35.3-44.9) % Plt Count 196 (140-400) K/mcL Neutrophils # 5.3 (1.6-8.9) K/mcL BMP 06/05/17 06:14 Sodium 134 L Potassium 4.2 Chloride 106 Carbon Dioxide 23 BUN 16 Creatinine 0.71 Glucose 313 H Calcium 8.7 - ABG Interpretation ABG results: PT/INR, D-dimer PT 9.7 Seconds (9.4-12.1) 06/02/17 04:52 Consult Discharge Plan - Plan Referrals: Jovita Meadows DO [Primary Care Provider] - 06/11/17 10:15 am (your appointment for 06-21-17 @ 1640 has been cancelled.) <Vineet Tong - Last Filed: 06/05/17 18:09> Date of Encounter: 06/05/17 - Assessment and plan (1) DKA (diabetic ketoacidoses) Current Visit: Yes Status: Resolved Qualifiers: Diabetes mellitus type: due to underlying condition Diabetes mellitus complication detail: without coma Qualified Code(s): E08.10 - Diabetes mellitus due to underlying condition with ketoacidosis without coma (2) Suicidal ideation Current Visit: Yes Status: Acute (3) Chronic pancreatitis Current Visit: Yes Status: Chronic Qualifiers: Pancreatitis type: alcohol induced Qualified Code(s): K86.0 - Alcohol- induced chronic pancreatitis (4) Diabetes Current Visit: Yes Status: Acute Qualifiers: Diabetes mellitus type: due to underlying condition Diabetes mellitus complication status: with hyperglycemia Diabetes mellitus intermediate manager insulin use: without intermediate manager use Qualified Code(s): E08.65 - Diabetes mellitus due to underlying condition with hyperglycemia (5) Alcoholic cirrhosis of liver Current Visit: Yes Status: Chronic Qualifiers: Ascites presence: without ascites Qualified Code(s): K70.30 - Alcoholic cirrhosis of liver without ascites (6) Severe protein-calorie malnutrition Current Visit: Yes Status: Acute (7) Alcoholism /alcohol abuse Current Visit: Yes Status: Inactive (8) Nicotine dependence Current Visit: No Status: Acute Qualifiers: Nicotine product type: cigarettes Substance use status: unspecified nicotine-induced disorder Qualified Code(s): F17.219 - Nicotine dependence, cigarettes, with unspecified nicotine-induced disorders - Constitutional Vitals: Temp Pulse Resp BP Pulse Ox 98.3 F 83 18 104/43 99 06/05/17 11:28 06/05/17 11:28 06/05/17 16:24 06/05/17 11:28 06/05/17 16:24 Internal Medicine: Result - Labs CBC & Chem 7: 06/05/17 06:14 06/05/17 06:14 Labs: Short CBC 06/05/17 Range/Units 06:14 WBC 8.7 D (4.3-11.1) K/mcL Hgb 10.3 L (11.5-15.4) g/dL Hct 31.4 L (35.3-44.9) % Plt Count 196 (140-400) K/mcL Neutrophils # 5.3 (1.6-8.9) K/mcL BMP 06/05/17 06:14 Sodium 134 L Potassium 4.2 Chloride 106 Carbon Dioxide 23 BUN 16 Creatinine 0.71 Glucose 313 H Calcium 8.7 - ABG Interpretation ABG results: PT/INR, D-dimer PT 9.7 Seconds (9.4-12.1) 06/02/17 04:52 - Attending Attestation I examined this patient and my medical decision-making was reviewed with the Resident Physician on 06/05/17. I agree with the documented findings, disposition and treatment plan as described except to the extent set forth below. Ms. Levine is currently admitted for acute DKA. She is high risk due to continued issues with blood sugar as well as sucidal ideation. Ms. Levine is doing OK. Seen by psych and appreciate input. Sitter d/c. Blood sugars have been up and down and insulin adjusted. No fever or chills. No GI symptoms. Exam Alert. Comfortable Mucus membranes dry Heart reg - not tachy Lungs clear Abd soft No edema I/P 1. DKA - resolved 2. Ins dep DM- most likely related to pancreatic issues (? chronic pancreatitis from alcohol versus other). Adjusting insulin 3. Suicidal ideation - cleared at this time. Further diagnoses and plan as above.
[2017-06-05] MEDS: Thiamine (B-1) 100 MG, Folic Acid 1 MG, MVI, adult with vitamin K 10 ML in 0.9 % Sodi... IVPB SCH (18:13)
[2017-06-06] MEDS: *HR* Heparin 5,000 UNIT/ML VIAL SQ SCH ×2 (06:36→16:25)
[2017-06-06] MEDS: Ipratropium/Albuterol Neb 3 ML IH SCH ×3 (07:59→23:24)
[2017-06-06] MEDS: Magnesium Oxide 400 MG TABLET PO SCH (08:06)
[2017-06-06] MEDS: Folic Acid 1 MG TABLET PO SCH (08:06)
[2017-06-06] MEDS: Thiamine (B-1) 100 MG TABLET PO SCH (08:06)
[2017-06-06] MEDS: Multivit/Ca/Min/Fe/FA 1 TAB TABLET PO SCH (08:06)
[2017-06-06] MEDS: Insulin LISPRO 300 UNITS/3 ML VIAL SQ SCH ×5 (08:49→21:33)
[2017-06-06] MEDS: Insulin DETEMIR 100 UNIT/ML X5UNITS SQ SCH (08:53)
[2017-06-06 09:04] LABS: Basophils % 0.3 %; Eosinophils # 0.1 K/mcL (0.0-0.6); Eosinophils % 1.4 %; Hematocrit 35.9 % (35.3-44.9); Hemoglobin 11.7 g/dL (11.5-15.4); Immature Granulocytes % 0.3 % (0-4); Lymphocytes # 2.6 K/mcL (0.6-4.6); Lymphocytes % 35.1 %; Mean Corpuscular HGB Conc 32.6 g/dL (31.6-35.5); Mean Corpuscular Hemoglobin 30.9 pg (28.0-33.3); Mean Corpuscular Volume 94.7 fL (83.0-100.0); Monocytes # 0.3 K/mcL (0.0-1.3); Monocytes % 4.2 %; Neutrophils # 4.3 K/mcL (1.6-8.9); Platelet Count 194 K/mcL (140-400); Red Blood Count 3.79 M/mcL (3.82-4.97); Red Cell Distribution Width 12.2 % (11.5-14.5); Segmented Neutrophils % 58.7 %
[2017-06-06 09:18] LABS: BUN/Creatinine Ratio 22 (6-26); Blood Urea Nitrogen 15 mg/dL (7-20); Carbon Dioxide 23 mEq/L (19-29); Chloride 105 mEq/L (98-109); Glucose 284 mg/dL (70-99); Osmolality,Calculated 289 (280-300); Potassium 4.3 mEq/L (3.5-4.5); Sodium 134 mEq/L (136-145); eGFR For African Americans > 60 (> 60); eGFR For Non-African Americans > 60 (> 60)
--- NOTE | 2017-06-06 11:53 | Internal Med Progress Note ---
<Uli Durán - Last Filed: 06/06/17 11:45> Date of Encounter: 06/06/17 Time of Encounter: 09:45 - Assessment and plan (1) Suicidal ideation Current Visit: Yes Status: Acute Assessment and plan: Patient had evaluation by psychiatry yesterday. Who felt that she is not currently at risk for potential self-harm, but would like someone to talk to. Appreciate psychiatry recommendations and assistance counseling at rehab facility Stable, sitter d/c (2) DKA (diabetic ketoacidoses) Current Visit: Yes Status: Resolved Assessment and plan: Patient DKA likely secondary to non-compliance with recent diagnosis of diabetes Patient continuing to have elevated blood sugars. DKA resolved. No signs of infection. urine culture was negative. Chest x-ray negative Insulin dosage adjusted yesterday, will continue to monitor blood sugar and adjust insulin Qualifiers: Diabetes mellitus type: due to underlying condition Diabetes mellitus complication detail: without coma Qualified Code(s): E08.10 - Diabetes mellitus due to underlying condition with ketoacidosis without coma (3) Alcoholic cirrhosis of liver Current Visit: Yes Status: Chronic Assessment and plan: Patient reports cessation of etoh usage F/U GI outpatient Qualifiers: Ascites presence: without ascites Qualified Code(s): K70.30 - Alcoholic cirrhosis of liver without ascites (4) Debilitated patient Current Visit: No Status: Acute Assessment and plan: History of multiple CVAs with residual weakness, etoh cirrhosis, and severe malnutrition. Recommended for SNF/ECF placement for rehab at discharge (5) Chronic pancreatitis Current Visit: Yes Status: Chronic Assessment and plan: Stable No concerns at this time Recommend following up with GI as outpatient for further evaluation of her pancreatic lesion Qualifiers: Pancreatitis type: alcohol induced Qualified Code(s): K86.0 - Alcohol- induced chronic pancreatitis (6) CVA, old, hemiparesis Current Visit: No Status: Chronic Assessment and plan: Patient reports continued weakness due to prior CVAs. PT/OT consulted Patient is recommended to need SNF/ECF placement at discharge, waiting for pre- cert (7) DVT prophylaxis Current Visit: No Status: Acute Assessment and plan: Heparin SQ BID - Time Spent With Patient 25 - 35 minutes - Subjective Interval history: Patient seen and and examined with patient sitting at the side of the bed eating. She reports that she is feeling well and without complaints today. I was called to the patient room yesterday evening in order to answer her questions regarding the scans that she and her boyfriend had regarding her previous abdominal CT that showed a pancreatic lesion. I explained the significance of the lesion in that it could represent chronic pancreatitis vs cancer and strongly recommended that she follow up with GI as outpatient in order to have it further assessed. Both her and her boyfriend expressed understanding. She had previously not had a workup done because she had initially missed her follow up appointment with GI and after her PCP, Dr. Meadows strongly recommended that she follow up with GI, she had refused. - Constitutional Vitals: Temp Pulse Resp BP Pulse Ox 98.0 F 72 18 119/63 96 06/06/17 08:38 06/06/17 08:38 06/06/17 08:38 06/06/17 08:38 06/06/17 08:38 General appearance: Present: cachectic, cooperative, A&O X 3, pleasant, no acute distress, answers questions appropriately Exam: General: Cooperative, no acute distress, alert and oriented 3, answers questions appropriately, flat affect, cachectic HEENT: Normocephalic, atraumatic, Conjunctiva pink, sclera anicteric Respiratory: No accessory muscle usage, clear to auscultation bilaterally, no wheezes/rhonchi/rales appreciated Cardiovascular: Regular rate and rhythm, S1 and S2 present, no murmurs/rubs/ gallops/clicks appreciated GI/abdominal: Nondistended, nontender, soft, normal bowel sounds, no peritoneal signs Extremities: No calf tenderness, noncyanotic, no pedal edema appreciated, warm, lower extremity pulses palpable and symmetrical Neurological: Alert and oriented 3, no facial droop, no focal deficits Skin: Dry, intact, normal color Internal Medicine: Result - Labs CBC & Chem 7: 06/06/17 08:28 06/06/17 08:28 Labs: Short CBC 06/06/17 Range/Units 08:28 WBC 7.3 (4.3-11.1) K/mcL Hgb 11.7 (11.5-15.4) g/dL Hct 35.9 (35.3-44.9) % Plt Count 194 (140-400) K/mcL Neutrophils # 4.3 (1.6-8.9) K/mcL BMP 06/06/17 08:28 Sodium 134 L Potassium 4.3 Chloride 105 Carbon Dioxide 23 BUN 15 Creatinine 0.69 Glucose 284 H Calcium 9.0 - ABG Interpretation ABG results: PT/INR, D-dimer PT 9.7 Seconds (9.4-12.1) 06/02/17 04:52 Consult Discharge Plan - Plan Referrals: Jovita Meadows DO [Primary Care Provider] - 06/11/17 10:15 am (your appointment for 06-21-17 @ [facility] has been cancelled.) <Vineet Tong - Last Filed: 06/06/17 15:55> Date of Encounter: 06/06/17 - Assessment and plan (1) Diabetes Current Visit: Yes Status: Acute Qualifiers: Diabetes mellitus type: due to underlying condition Diabetes mellitus complication status: with hyperglycemia Diabetes mellitus half-way insulin use: without salvage determiner use Qualified Code(s): E08.65 - Diabetes mellitus due to underlying condition with hyperglycemia (2) DKA (diabetic ketoacidoses) Current Visit: Yes Status: Resolved Qualifiers: Diabetes mellitus type: due to underlying condition Diabetes mellitus complication detail: without coma Qualified Code(s): E08.10 - Diabetes mellitus due to underlying condition with ketoacidosis without coma (3) Suicidal ideation Current Visit: Yes Status: Acute (4) Chronic pancreatitis Current Visit: Yes Status: Chronic Qualifiers: Pancreatitis type: alcohol induced Qualified Code(s): K86.0 - Alcohol- induced chronic pancreatitis (5) Alcoholic cirrhosis of liver Current Visit: Yes Status: Chronic Qualifiers: Ascites presence: without ascites Qualified Code(s): K70.30 - Alcoholic cirrhosis of liver without ascites (6) Severe protein-calorie malnutrition Current Visit: Yes Status: Acute (7) Alcoholism /alcohol abuse Current Visit: Yes Status: Inactive (8) Nicotine dependence Current Visit: No Status: Acute Qualifiers: Nicotine product type: cigarettes Substance use status: unspecified nicotine-induced disorder Qualified Code(s): F17.219 - Nicotine dependence, cigarettes, with unspecified nicotine-induced disorders - Constitutional Vitals: Temp Pulse Resp BP Pulse Ox 98.3 F 86 16 95/58 98 06/06/17 12:05 06/06/17 12:05 06/06/17 15:13 06/06/17 12:05 06/06/17 15:13 Internal Medicine: Result - Labs CBC & Chem 7: 07/16/17 08:28 06/06/17 08:28 Labs: Short CBC 06/06/17 Range/Units 08:28 WBC 7.3 (4.3-11.1) K/mcL Hgb 11.7 (11.5-15.4) g/dL Hct 35.9 (35.3-44.9) % Plt Count 194 (140-400) K/mcL Neutrophils # 4.3 (1.6-8.9) K/mcL BMP 06/06/17 08:28 Sodium 134 L Potassium 4.3 Chloride 105 Carbon Dioxide 23 BUN 15 Creatinine 0.69 Glucose 284 H Calcium 9.0 - ABG Interpretation ABG results: PT/INR, D-dimer PT 9.7 Seconds (9.4-12.1) 06/02/17 04:52 - Attending Attestation I examined this patient and my medical decision-making was reviewed with the Resident Physician on 06/06/17. I agree with the documented findings, disposition and treatment plan as described except to the extent set forth below. Ms. Brenner is currently admitted for acute DKA and chronic alcohol issues. She remains moderate risk due to potential for worsening glucose issues. Ms. Brenner is awaiting breakfast. Denies pain. No fever or chills. No GI issues, SOB, CP. Glucose continues to fluctuate and insulin has been adjusted. Exam Alert. Comfortable Mucus membranes moist Heart reg No wheeze Abd soft and nontender No edema I/P 1. DKA resolved 2. Uncontrolled DM - most likely related to chronic pancreatitis 3. Pancreatic lesion - needs outpatient follow up Further diagnoses and plan as above Pt medically clear for discharge to SNF tomorrow.
[2017-06-07] MEDS: *HR* Heparin 5,000 UNIT/ML VIAL SQ SCH ×2 (05:44→17:26)
[2017-06-07 05:52] LABS: Basophils % 0.3 %; Eosinophils # 0.2 K/mcL (0.0-0.6); Eosinophils % 2.5 %; Hematocrit 30.3 % (35.3-44.9); Immature Granulocytes % 0.4 % (0-4); Lymphocytes # 2.7 K/mcL (0.6-4.6); Mean Corpuscular HGB Conc 32.3 g/dL (31.6-35.5); Mean Corpuscular Hemoglobin 31.1 pg (28.0-33.3); Mean Corpuscular Volume 96.2 fL (83.0-100.0); Mean Platelet Volume 12.2 fL (9.4-12.4); Monocytes # 0.5 K/mcL (0.0-1.3); Monocytes % 6.7 %; Platelet Count 173 K/mcL (140-400); Red Blood Count 3.15 M/mcL (3.82-4.97); Red Cell Distribution Width 12.4 % (11.5-14.5); Segmented Neutrophils % 54.1 %
[2017-06-07 05:54] LABS: Hemoglobin 9.8 g/dL (11.5-15.4)
[2017-06-07 06:05] LABS: BUN/Creatinine Ratio 23 (6-26); Blood Urea Nitrogen 16 mg/dL (7-20); Calcium 8.4 mg/dL (8.6-10.8); Carbon Dioxide 24 mEq/L (19-29); Chloride 107 mEq/L (98-109); Glucose 346 mg/dL (70-99); Osmolality,Calculated 291 (280-300); Potassium 4.4 mEq/L (3.5-4.5); Sodium 133 mEq/L (136-145); eGFR For African Americans > 60 (> 60); eGFR For Non-African Americans > 60 (> 60)
[2017-06-07] MEDS: Ipratropium/Albuterol Neb 3 ML IH SCH ×3 (07:51→23:39)
[2017-06-07] MEDS: Multivit/Ca/Min/Fe/FA 1 TAB TABLET PO SCH (08:45)
[2017-06-07] MEDS: Thiamine (B-1) 100 MG TABLET PO SCH (08:45)
[2017-06-07] MEDS: Folic Acid 1 MG TABLET PO SCH (08:46)
[2017-06-07] MEDS: Insulin DETEMIR 100 UNIT/ML X5UNITS SQ SCH (08:46)
[2017-06-07] MEDS: Insulin LISPRO 300 UNITS/3 ML VIAL SQ SCH ×4 (08:47→20:48)
--- NOTE | 2017-06-07 16:02 | Internal Med Progress Note ---
<Veronica Galeano - Last Filed: 06/07/17 16:00> Date of Encounter: 06/07/17 Time of Encounter: 10:30 - Assessment and plan (1) DKA (diabetic ketoacidoses) Current Visit: Yes Status: Resolved Assessment and plan: Patient DKA likely secondary to non-compliance with recent diagnosis of diabetes Patient continuing to have elevated blood sugars. DKA resolved. No signs of infection. urine culture was negative. Chest x-ray negative Qualifiers: Diabetes mellitus type: due to underlying condition Diabetes mellitus complication detail: without coma Qualified Code(s): E08.10 - Diabetes mellitus due to underlying condition with ketoacidosis without coma (2) Alcoholic cirrhosis of liver Current Visit: Yes Status: Chronic Assessment and plan: Patient reports cessation of alcohol usage F/U GI outpatient Qualifiers: Ascites presence: without ascites Qualified Code(s): K70.30 - Alcoholic cirrhosis of liver without ascites (3) Chronic pancreatitis Current Visit: Yes Status: Chronic Assessment and plan: Stable No concerns at this time Recommend following up with GI as outpatient for further evaluation of her pancreatic lesion Qualifiers: Pancreatitis type: alcohol induced Qualified Code(s): K86.0 - Alcohol- induced chronic pancreatitis (4) DVT prophylaxis Current Visit: No Status: Acute Assessment and plan: Heparin SQ BID (5) Severe protein-calorie malnutrition Current Visit: Yes Status: Acute Assessment and plan: significant temporal wasting and muscle wasting history of alcohol cirrhosis, multiple CVAs with residual weakness Recommended forSNF/ECF rehab at discharge - Subjective Interval history: Patient is sitting up in bed comfortably eating breakfast She has no complaints at this time patient was she asked when she would be able to go to the short term nursing facility - Constitutional Vitals: Temp Pulse Resp BP Pulse Ox 98.3 F 89 16 163/77 98 06/07/17 14:52 06/07/17 14:52 06/07/17 14:52 06/07/17 14:52 06/07/17 14:52 General appearance: Present: cachectic, cooperative, A&O X 3, pleasant, no acute distress, answers questions appropriately - Head Head exam: Present: atraumatic. Absent: normocephalic (Temporal wasting ) - Eye Eye exam: Present: conjuntiva pink. Absent: scleral icterus - Neck Neck exam general surgery: Present: supple, trachea midline. Absent: tenderness - Respiratory Respiratory exam: Present: CTAB. Absent: respiratory distress, rhonchi, stridor - Cardiovascular Cardiovascular exam: Present: RRR, +S1, +S2. Absent: clicks - GI/Abdominal GI/Abdominal exam: Present: normal bowel sounds, soft. Absent: guarding, tenderness - Extremities Exam Extremities exam: Absent: mottling, pedal edema, tenderness - Back Exam Back exam: Absent: rash noted, tenderness - Skin Skin exam: Present: dry, intact (Very little subcutaneous adipose tissue ) Internal Medicine: Result - Labs CBC & Chem 7: 06/07/17 04:51 06/07/17 04:51 Labs: Short CBC 06/07/17 Range/Units 04:51 WBC 7.5 (4.3-11.1) K/mcL Hgb 9.8 L D (11.5-15.4) g/dL Hct 30.3 L (35.3-44.9) % Plt Count 173 (140-400) K/mcL Neutrophils # 4.0 (1.6-8.9) K/mcL BMP 06/07/17 04:51 Sodium 133 L Potassium 4.4 Chloride 107 Carbon Dioxide 24 BUN 16 Creatinine 0.71 Glucose 346 H Calcium 8.4 L - ABG Interpretation ABG results: PT/INR, D-dimer PT 9.7 Seconds (9.4-12.1) 06/02/17 04:52 Consult Discharge Plan - Plan Referrals: Jovita Meadows DO [Primary Care Provider] - 06/11/17 10:15 am (your appointment for 06-21-17 @ 1640 has been cancelled.) <Vineet Tong - Last Filed: 06/07/17 18:08> Date of Encounter: 06/07/17 - Assessment and plan (1) Diabetes Current Visit: Yes Status: Acute Qualifiers: Diabetes mellitus type: due to underlying condition Diabetes mellitus complication status: with hyperglycemia Diabetes mellitus detention insulin use: without termite technician use Qualified Code(s): E08.65 - Diabetes mellitus due to underlying condition with hyperglycemia (2) DKA (diabetic ketoacidoses) Current Visit: Yes Status: Resolved Qualifiers: Diabetes mellitus type: due to underlying condition Diabetes mellitus complication detail: without coma Qualified Code(s): E08.10 - Diabetes mellitus due to underlying condition with ketoacidosis without coma (3) Suicidal ideation Current Visit: Yes Status: Resolved (4) Chronic pancreatitis Current Visit: Yes Status: Chronic Qualifiers: Pancreatitis type: alcohol induced Qualified Code(s): K86.0 - Alcohol- induced chronic pancreatitis (5) Alcoholic cirrhosis of liver Current Visit: Yes Status: Chronic Qualifiers: Ascites presence: without ascites Qualified Code(s): K70.30 - Alcoholic cirrhosis of liver without ascites (6) Severe protein-calorie malnutrition Current Visit: Yes Status: Acute (7) Alcoholism /alcohol abuse Current Visit: Yes Status: Inactive (8) Nicotine dependence Current Visit: No Status: Acute Qualifiers: Nicotine product type: cigarettes Substance use status: unspecified nicotine-induced disorder Qualified Code(s): F17.219 - Nicotine dependence, cigarettes, with unspecified nicotine-induced disorders - Constitutional Vitals: Temp Pulse Resp BP Pulse Ox 98.3 F 89 16 163/77 98 06/07/17 14:52 06/07/17 14:52 06/07/17 16:08 06/07/17 14:52 06/07/17 16:08 Internal Medicine: Result - Labs CBC & Chem 7: 06/07/17 04:51 06/07/17 04:51 Labs: Short CBC 06/07/17 Range/Units 04:51 WBC 7.5 (4.3-11.1) K/mcL Hgb 9.8 L D (11.5-15.4) g/dL Hct 30.3 L (35.3-44.9) % Plt Count 173 (140-400) K/mcL Neutrophils # 4.0 (1.6-8.9) K/mcL BMP 06/07/17 04:51 Sodium 133 L Potassium 4.4 Chloride 107 Carbon Dioxide 24 BUN 16 Creatinine 0.71 Glucose 346 H Calcium 8.4 L - ABG Interpretation ABG results: PT/INR, D-dimer PT 9.7 Seconds (9.4-12.1) 06/02/17 04:52 - Attending Attestation I examined this patient and my medical decision-making was reviewed with the Resident Physician on 06/07/17. I agree with the documented findings, disposition and treatment plan as described except to the extent set forth below. Ms Brenner is currently admitted for acute DKA and uncontrolled new diabetes. She is awaiting placement. She is moderate risk due to continued issues with fluctuating blood sugars and need for insulin adjustments. Ms Brenner feels OK. No new issues overnight. No fever or chills. Awaiting approval to go to SNF. Exam Alert. Comfortable Mucus membranes moist Heart reg Lungs clear Abd soft No edema I/P 1. DKA - resolved 2. Uncontrolled DM most likely related to chronic pancreatitis 3. Chronic ETOH abuse Further diagnoses and plan as above.
[2017-06-08 04:40] LABS: Hematocrit 28.4 % (35.3-44.9); Hemoglobin 9.3 g/dL (11.5-15.4); Immature Platelets 10.3 % (1.1-6.1); Mean Corpuscular HGB Conc 32.7 g/dL (31.6-35.5); Mean Corpuscular Hemoglobin 31.2 pg (28.0-33.3); Mean Corpuscular Volume 95.3 fL (83.0-100.0); Red Blood Count 2.98 M/mcL (3.82-4.97); Red Cell Distribution Width 12.4 % (11.5-14.5)
[2017-06-08 05:37] LABS: BUN/Creatinine Ratio 24 (6-26); Blood Urea Nitrogen 16 mg/dL (7-20); Calcium 8.8 mg/dL (8.6-10.8); Carbon Dioxide 23 mEq/L (19-29); Chloride 107 mEq/L (98-109); Glucose 275 mg/dL (70-99); Osmolality,Calculated 291 (280-300); Potassium 4.2 mEq/L (3.5-4.5); Sodium 135 mEq/L (136-145); eGFR For African Americans > 60 (> 60); eGFR For Non-African Americans > 60 (> 60)
[2017-06-08] MEDS: *HR* Heparin 5,000 UNIT/ML VIAL SQ SCH ×2 (05:58→17:32)
[2017-06-08] MEDS: Ipratropium/Albuterol Neb 3 ML IH SCH ×3 (08:11→22:06)
[2017-06-08] MEDS: Folic Acid 1 MG TABLET PO SCH (08:25)
[2017-06-08] MEDS: Insulin DETEMIR 100 UNIT/ML X5UNITS SQ SCH ×2 (08:25→21:33)
[2017-06-08] MEDS: Multivit/Ca/Min/Fe/FA 1 TAB TABLET PO SCH (08:26)
[2017-06-08] MEDS: Insulin LISPRO 300 UNITS/3 ML VIAL SQ SCH ×4 (08:26→21:14)
[2017-06-08] MEDS: Thiamine (B-1) 100 MG TABLET PO SCH (08:26)
[2017-06-08] MEDS ORDERED: Insulin DETEMIR 100 UNIT/ML X5UNITS SQ ONE (13:30)
--- NOTE | 2017-06-08 15:16 | Internal Med Progress Note ---
Date of Encounter: 06/08/17 Time of Encounter: 11:15 - Assessment and plan (1) Alcoholic cirrhosis of liver Current Visit: Yes Status: Chronic Assessment and plan: Continue supportive care. On thiamine and multivitamins along with folic acid. Qualifiers: Ascites presence: without ascites Qualified Code(s): K70.30 - Alcoholic cirrhosis of liver without ascites (2) Chronic pancreatitis Current Visit: Yes Status: Chronic Assessment and plan: Tolerating diet well. No abdominal pain reported. Qualifiers: Pancreatitis type: alcohol induced Qualified Code(s): K86.0 - Alcohol- induced chronic pancreatitis (3) Debilitated patient Current Visit: No Status: Acute Assessment and plan: Placement to skilled rehabilitation recommended by physical therapy. personal care worker working on this. (4) DVT prophylaxis Current Visit: No Status: Acute Assessment and plan: With subcutaneous heparin (5) Severe protein-calorie malnutrition Current Visit: Yes Status: Chronic Assessment and plan: Improved appetite and diet. We will recheck albumin levels. (6) DKA (diabetic ketoacidoses) Current Visit: No Status: Resolved Qualifiers: Diabetes mellitus type: due to underlying condition Diabetes mellitus complication detail: without coma Qualified Code(s): E08.10 - Diabetes mellitus due to underlying condition with ketoacidosis without coma - Subjective Interval history: Patient denies any new complaints at this time. Awake and alert oriented. Tolerating diet well. No nausea or vomiting. - Constitutional Vitals: Temp Pulse Resp BP Pulse Ox 98.2 F 73 18 115/62 100 06/08/17 08:15 06/08/17 08:15 06/08/17 08:15 06/08/17 08:15 06/08/17 08:15 General appearance: Present: cachectic, cooperative, A&O X 3, pleasant, no acute distress, answers questions appropriately - Respiratory Respiratory exam: Present: CTAB. Absent: accessory muscle use, rales, rhonchi, wheezes - Cardiovascular Cardiovascular exam: Present: RRR, +S1, +S2. Absent: diastolic murmur, gallop, rubs, systolic murmur - Extremities Exam Extremities exam: Present: warm, radial pulses palpable and symetrical. Absent : calf tenderness, cyanotic, pedal edema - Neurological Exam Neurological exam: Present: alert, oriented X3, no focal deficits, strengths equal and symetr throughout. Absent: facial droop, speech deficit Internal Medicine: Result - Labs CBC & Chem 7: 06/08/17 04:06 06/08/17 04:06 Labs: Short CBC 06/08/17 Range/Units 04:06 WBC 9.4 (4.3-11.1) K/mcL Hgb 9.3 L (11.5-15.4) g/dL Hct 28.4 L (35.3-44.9) % Plt Count 197 (140-400) K/mcL BMP 06/08/17 04:06 Sodium 135 L Potassium 4.2 Chloride 107 Carbon Dioxide 23 BUN 16 Creatinine 0.68 Glucose 275 H Calcium 8.8 - ABG Interpretation ABG results: PT/INR, D-dimer PT 9.7 Seconds (9.4-12.1) 06/02/17 04:52 Consult Discharge Plan - Plan Referrals: Jovita Meadows DO [Primary Care Provider] - 06/11/17 10:15 am (your appointment for 06-21-17 @ [facility] has been cancelled.)
[2017-06-09] MEDS: *HR* Heparin 5,000 UNIT/ML VIAL SQ SCH ×2 (05:00→18:36)
[2017-06-09 06:53] LABS: BUN/Creatinine Ratio 29 (6-26); Blood Urea Nitrogen 16 mg/dL (7-20); Calcium 8.7 mg/dL (8.6-10.8); Carbon Dioxide 25 mEq/L (19-29); Chloride 111 mEq/L (98-109); Glucose 52 mg/dL (70-99); Osmolality,Calculated 287 (280-300); Sodium 139 mEq/L (136-145); eGFR For African Americans > 60 (> 60); eGFR For Non-African Americans > 60 (> 60)
[2017-06-09 07:08] LABS: Hematocrit 28.7 % (35.3-44.9); Hemoglobin 9.6 g/dL (11.5-15.4); Mean Corpuscular HGB Conc 33.4 g/dL (31.6-35.5); Mean Corpuscular Hemoglobin 31.9 pg (28.0-33.3); Mean Corpuscular Volume 95.3 fL (83.0-100.0); Mean Platelet Volume 11.9 fL (9.4-12.4); Platelet Count 239 K/mcL (140-400); Red Blood Count 3.01 M/mcL (3.82-4.97); Red Cell Distribution Width 12.7 % (11.5-14.5)
[2017-06-09] MEDS: Ipratropium/Albuterol Neb 3 ML IH SCH ×3 (07:45→23:28)
[2017-06-09] MEDS: Insulin LISPRO 300 UNITS/3 ML VIAL SQ SCH ×4 (08:04→19:43)
[2017-06-09] MEDS: Multivit/Ca/Min/Fe/FA 1 TAB TABLET PO SCH (09:07)
[2017-06-09] MEDS: Folic Acid 1 MG TABLET PO SCH (09:07)
[2017-06-09] MEDS: Insulin DETEMIR 100 UNIT/ML X5UNITS SQ SCH (09:07)
[2017-06-09] MEDS: Thiamine (B-1) 100 MG TABLET PO SCH (09:07)
--- NOTE | 2017-06-09 15:09 | Discharge Summary ---
Date of Encounter: 06/09/17 Time of Encounter: 09:30 - Discharge Diagnosis (1) DKA (diabetic ketoacidoses) Priority: Primary Status: Resolved Qualifiers: Diabetes mellitus type: due to underlying condition Diabetes mellitus complication detail: without coma Qualified Code(s): E08.10 - Diabetes mellitus due to underlying condition with ketoacidosis without coma (2) Alcoholic cirrhosis of liver Priority: Secondary Status: Chronic Qualifiers: Ascites presence: without ascites Qualified Code(s): K70.30 - Alcoholic cirrhosis of liver without ascites (3) Chronic pancreatitis Priority: Secondary Status: Chronic Qualifiers: Pancreatitis type: alcohol induced Qualified Code(s): K86.0 - Alcohol- induced chronic pancreatitis (4) Debilitated patient Priority: Secondary Status: Acute (5) DVT prophylaxis Priority: Secondary Status: Acute (6) Severe protein-calorie malnutrition Priority: Secondary Status: Chronic (7) Diabetes Priority: Secondary Status: Chronic Qualifiers: Diabetes mellitus type: due to underlying condition Diabetes mellitus complication status: with other specified complication Diabetes mellitus intermediate teacher insulin use: without intermediate teacher use Qualified Code(s): E08.69 - Diabetes mellitus due to underlying condition with other specified complication - Discharge Medications Prescriptions: Zolpidem [Ambien] 5 mg PO HS PRN #10 tab PRN Reason: Insomnia Home Medications: Atorvastatin Calcium [Lipitor] 20 mg PO DAILY 06/02/17 [History] Acetaminophen [Tylenol] 650 mg PO Q6HR PRN tab 06/09/17 [Rx] Folic Acid 1 mg PO DAILY tab 06/09/17 [Rx] Insulin DETEMIR [Levemir] 10 unit SQ HS 06/09/17 [Rx] Insulin DETEMIR [Levemir] 20 unit SQ QAM 06/09/17 [Rx] Insulin LISPRO [HumaLOG] See Protocol SQ HS vial 06/09/17 [Rx] Insulin LISPRO [HumaLOG] See Protocol SQ TIDAC vial 06/09/17 [Rx] Ipratropium/Albuterol Neb [Duoneb] 3 ml IH Q4H PRN inh 06/09/17 [Rx] Multivit/Ca/Min/Fe/FA [Thera M Plus] 1 tab PO DAILY tab 06/09/17 [Rx] Thiamine (B-1) [Vitamin B-1] 100 mg PO DAILY tab 06/09/17 [Rx] Zolpidem [Ambien] 5 mg PO HS PRN #10 tab 06/09/17 [Rx] Allergies/Adverse Reactions: Allergies No Known Allergies Allergy (Verified 01/16/17 17:07) Date of admission: 06/02/17 09:06 Primary care physician: Jovita Meadows DO Consults: 06/02/17 09:31 Consult to Invasive Line Access Team [CONS] Routine Reason for Consult: Limited vasc access Line Type: EPIV 06/02/17 10:51 Consult to Nutrition [CONS] Routine Comment: Consulting Provider: NUTRITION Reason for Dietary Consult: MST Score 06/04/17 13:01 Consult to Psychiatry [CONS] Routine Consulting Provider: Psychiatry Pura Reason for Consult: Suicidal ideation Time Notified: 13:00 Call Completed: Yes 06/05/17 17:23 Consult to Milling Machinist [CONS] Stat Comment: Reason for Consult: Diabetes education Discharging clinician: Rob Mai Anticipated date of discharge: 06/09/17 - Patient Status Disposition: Transfer SNF Condition: Good Functional capacity at discharge: uses cane/walker Overall status at discharge: patient is progressing back to baseline - Discharge Instructions Instructions: Diabetes Mellitus Type 2 in Adults (DC) Follow Up With: Jovita Meadows DO [Primary Care Provider] - 06/11/17 10:15 am (your appointment for 06-21-17 @ 1640 has been cancelled.) Forms: ED Satisfaction Letter - Diet and Activity Activity: as per physical therapy Diet: diabetic diet, low fat, low cholesterol, low salt diet Hospital course: Ms. Brenner is a 61 year old female patient with history of type 2 diabetes mellitus was admitted here with diabetic ketoacidosis. She also has a history of alcohol abuse and cirrhosis along with chronic pancreatitis and has been severely malnourished. She was treated for diabetic ketoacidosis with intravenous insulin. Once her diabetic ketoacidosis was resolved, she was transitioned to subcutaneous insulin along with Levemir and diabetic diet. Since then her blood sugars have been better controlled. During her stay here, patient had an episode of agitation and threatened self- harm if she did not receive sleeping pill. As such psychiatry was consulted. During psychiatric evaluation, she denied any suicidal ideation and did not have any intent or plan. As such she was not referred for inpatient psychiatric hospitalization. She was evaluated by physical therapy and recommended placement to skilled rehabilitation. Patient's appetite has improved and she is eating better an doing well overall. She will be discharged once she has a bed available at care home facility and insurance approved - Time Spent with Patient Total time spent providing and/or coordinating discharge services: Greater than 30 minutes (45 min) - Constitutional Vitals: Temp Pulse Resp BP Pulse Ox 97.9 F 81 18 123/65 100 06/09/17 11:21 06/09/17 11:21 06/09/17 11:21 06/09/17 11:21 06/09/17 11:21 General appearance: Present: cachectic, cooperative, A&O X 3, pleasant, no acute distress, answers questions appropriately - Respiratory Respiratory exam: Present: CTAB. Absent: accessory muscle use, rales, rhonchi, wheezes - Cardiovascular Cardiovascular exam: Present: RRR, +S1, +S2. Absent: diastolic murmur, gallop, rubs, systolic murmur - GI/Abdominal GI/Abdominal exam: Present: normal bowel sounds, soft, no peritoneal signs. Absent: distended, tenderness - Extremities Exam Extremities exam: Present: warm, radial pulses palpable and symetrical. Absent : calf tenderness, cyanotic, pedal edema - Neurological Exam Neurological exam: Present: alert, CN II-XII intact, oriented X3, no focal deficits. Absent: facial droop, speech deficit
--- NOTE | 2017-06-09 15:12 | Physician Discharge Referral ---
Extended[facility] Referral Info Provider in Charge after Transfer: PCP Institutional Level of Care: Skilled - Diagnosis (1) DKA (diabetic ketoacidoses) Priority: Primary Status: Resolved (2) Alcoholic cirrhosis of liver Priority: Secondary Status: Chronic (3) Chronic pancreatitis Priority: Secondary Status: Chronic (4) Debilitated patient Priority: Secondary Status: Acute (5) DVT prophylaxis Priority: Secondary Status: Acute (6) Severe protein-calorie malnutrition Priority: Secondary Status: Chronic (7) Diabetes Priority: Secondary Status: Chronic Prognosis: Fair Aware of Diagnosis: Patient Aware of Prognosis: Patient - Transfer Medications Prescriptions: Zolpidem [Ambien] 5 mg PO HS PRN #10 tab PRN Reason: Insomnia Home Medications: Atorvastatin Calcium [Lipitor] 20 mg PO DAILY 06/02/17 [History] Acetaminophen [Tylenol] 650 mg PO Q6HR PRN tab 06/09/17 [Rx] Folic Acid 1 mg PO DAILY tab 06/09/17 [Rx] Insulin DETEMIR [Levemir] 10 unit SQ HS 06/09/17 [Rx] Insulin DETEMIR [Levemir] 20 unit SQ QAM 06/09/17 [Rx] Insulin LISPRO [HumaLOG] See Protocol SQ HS vial 06/09/17 [Rx] Insulin LISPRO [HumaLOG] See Protocol SQ TIDAC vial 06/09/17 [Rx] Ipratropium/Albuterol Neb [Duoneb] 3 ml IH Q4H PRN inh 06/09/17 [Rx] Multivit/Ca/Min/Fe/FA [Thera M Plus] 1 tab PO DAILY tab 06/09/17 [Rx] Thiamine (B-1) [Vitamin B-1] 100 mg PO DAILY tab 06/09/17 [Rx] Zolpidem [Ambien] 5 mg PO HS PRN #10 tab 06/09/17 [Rx] Allergies/Adverse Reactions: Allergies No Known Allergies Allergy (Verified 01/16/17 17:07) - Respiratory Orders Smoking Cessation: Smoking cessation has been advised. For more information, call the [place] [facility] Quit Line at 8-532-GCHL-NOW. - Ancillary Orders May use pressure relief devices daily prn, May consult with Dentist, Master Machinist, Developer [employer] - Advance Directives Code Status: Full Code CERTIFICATION: I certify that the transfer of the above named patient to an Extended Care Facility is necessary for the continuing treatment of the diagnosis listed. The above information is true and accurate reflection of patient's current condition. Confidential - Redisclosure prohibited without a patient's written consent.
[2017-06-09] MEDS ORDERED: Insulin DETEMIR 100 UNIT/ML X5UNITS SQ SCH (21:00)
[2017-06-10] MEDS: *HR* Heparin 5,000 UNIT/ML VIAL SQ SCH (05:38)
[2017-06-10 07:58] VITALS: BP 124/70
[2017-06-10] MEDS: Ipratropium/Albuterol Neb 3 ML IH SCH (08:09)
[2017-06-10] MEDS ORDERED: Insulin DETEMIR 100 UNIT/ML X5UNITS SQ SCH (09:00)
== END 2017-06-10 09:30 | DRG 420 ==
LOC: 2NNU 03:14 → EMEROO 03:14 → 2NNU 07:28 → SUATTDRO 09:06 → 3ANU 06-03 17:27
PROVIDERS: ADMIT Pediatrics; ATTEND Internal Medicine